=== PATIENT | male | born 1945 | race Caucasian/White ===

== ENCOUNTER 2021-01-20 17:21 | Inpatient (IN) | payer MEDICARE, OTHER ==
[2021-01-20] MEDS ORDERED: Metoclopramide 10 MG/2 ML SDV IVPUSH ONE (18:59)
--- NOTE | 2021-01-20 20:15 | EDM.PDOC ---
ED HPI GENERAL MEDICAL PROBLEM - General Chief Complaint: Genitourinary Problem Stated Complaint: THROWING UP/FEELING WEAK Time Seen by Provider: 01/20/21 18:11 Source of Information: Reports: Patient History Limitations: Reports: No Limitations - History of Present Illness INITIAL COMMENTS - FREE TEXT/NARRATIVE: 75-year-old male presents the emergency department this evening with complaints of worsening urinary symptoms, and nausea and vomiting. Patient states he has a history of UTIs and developed symptoms yesterday. He states he has frequency, urgency, and burning with urination. He also reports flank pain bilaterally.He states that he was seen at the walk-in clinic this morning and was told he has a urinary tract infection. He was started on Cipro at that time. Patient states he has taken 2 doses of Cipro however has developed nausea and vomiting and flank pain. States he had chills last evening. Denies any abdominal pain. - Related Data Allergies Allergy/AdvReac Type Severity Reaction Status Date / Time No Known Allergies Allergy Verified 01/20/21 17:34 Past Medical History Gastrointestinal History: Reports: GERD Genitourinary History: Reports: UTI, Recurrent - Infectious Disease History Infectious Disease History: Reports: Chicken Pox - Past Surgical History Other Musculoskeletal Surgeries/Procedures:: back surgery 1984 Social & Family History - Tobacco Use Tobacco Use Status *Q: Former Tobacco User Used Tobacco, but Quit: Yes Month/Year Tobacco Last Used: 09/2000 - Caffeine Use Caffeine Use: Reports: Coffee - Recreational Drug Use Recreational Drug Use: No ED ROS GENERAL - Review of Systems Review Of Systems: Comprehensive ROS is negative, except as noted in HPI. ED EXAM, RENAL/ - Physical Exam Exam: See Below Exam Limited By: No Limitations General Appearance: Alert, WD/WN, No Apparent Distress Ears: Normal External Exam, Hearing Grossly Normal Nose: Normal Inspection Throat/Mouth: Normal Inspection, Normal Lips, Normal Voice, No Airway Compromise Head: Atraumatic Neck: Normal Inspection, Supple, Non-Tender, Full Range of Motion Respiratory/Chest: No Respiratory Distress, Lungs Clear, Normal Breath Sounds, No Accessory Muscle Use, Chest Non-Tender Cardiovascular: Normal Peripheral Pulses, Regular Rate, Rhythm, No Edema, No Murmur GI/Abdominal: Normal Bowel Sounds, Soft, Non-Tender, No Distention (Male) Exam: Deferred Rectal (Males) Exam: Deferred Back Exam: Normal Inspection, Full Range of Motion Extremities: Normal Inspection, Normal Range of Motion, Non-Tender, No Pedal Edema, Normal Capillary Refill Neurological: Alert, Oriented, Normal Cognition Psychiatric: Normal Affect, Normal Mood Skin Exam: Warm, Dry, Intact, Normal Color, No Rash Lymphatic: No Adenopathy Course - Vital Signs Text/Narrative:: Patient presents with UTI who was seen at [facility] this morning and diagnosed and started on Cipro. He states that he has taken 2 doses of Cipro today however has developed nausea and vomiting. He states he probably vomited his second dose of Cipro today. I have ordered labs, UA, and Reglan 5 mg for this patient as he continues to complain of nausea. Last Recorded V/S: Last Vital Signs Temp 97.4 F 01/20/21 17:29 Pulse 64 01/20/21 17:29 Resp 12 01/20/21 17:29 BP 157/75 H 01/20/21 17:29 Pulse Ox 96 01/20/21 17:29 - Orders/Labs/Meds Orders: Active Orders 24 hr Category Date Time Status Admission Status [Patient Status] [ADT] Routine ADT 01/20/21 20:43 Active Patient Status [ADT] Routine ADT 01/20/21 20:34 Active EKG Documentation Completion [RC] ROUTINE Care 01/20/21 20:42 Active Intake and Output [RC] QSHIFT Care 01/20/21 20:43 Active Oxygen Therapy [RC] PRN Care 01/20/21 20:42 Active RT Aerosol Therapy [RC] ASDIRECTED Care 01/20/21 20:46 Active Up to Chair [RC] ASDIRECTED Care 01/20/21 20:42 Active VTE/DVT Education [RC] PER UNIT ROUTINE Care 01/20/21 20:42 Active Vital Signs [RC] Q4H Care 01/20/21 20:42 Active OT Evaluation and Treatment [CONS] Routine Cons 01/20/21 20:42 Active PT Evaluation and Treatment [CONS] Routine Cons 01/20/21 20:42 Active Regular Diet [DIET] Diet 01/20/21 Dinner Active CBC WITH AUTO DIFF [HEME] DAILY Lab 01/21/21 05:00 Ordered CBC WITH AUTO DIFF [HEME] DAILY Lab 01/22/21 05:00 Ordered CBC WITH AUTO DIFF [HEME] DAILY Lab 01/23/21 05:00 Ordered CBC WITH AUTO DIFF [HEME] DAILY Lab 01/24/21 05:00 Ordered CBC WITH AUTO DIFF [HEME] DAILY Lab 01/25/21 05:00 Ordered COMPREHENSIVE METABOLIC PN,CMP [CHEM] DAILY Lab 01/21/21 05:00 Ordered COMPREHENSIVE METABOLIC PN,CMP [CHEM] DAILY Lab 01/22/21 05:00 Ordered COMPREHENSIVE METABOLIC PN,CMP [CHEM] DAILY Lab 01/23/21 05:00 Ordered COMPREHENSIVE METABOLIC PN,CMP [CHEM] DAILY Lab 01/24/21 05:00 Ordered COMPREHENSIVE METABOLIC PN,CMP [CHEM] DAILY Lab 01/25/21 05:00 Ordered CORONAVIRUS COVID-19 AIRAM [MOLEC] Stat Lab 01/20/21 20:29 Received CULTURE BLOOD [BC] Stat Lab 01/20/21 19:59 Received CULTURE BLOOD [BC] Stat Lab 01/20/21 20:06 Received CULTURE URINE [RM] Stat Lab 01/20/21 20:42 Ordered MAGNESIUM [CHEM] Routine Lab 01/20/21 17:30 Received TROPONIN I [CHEM] Routine Lab 01/20/21 17:30 Received Acetaminophen [TylenoL] Med 01/20/21 20:42 Active 650 mg PO Q6H PRN Albuterol/Ipratropium [DuoNeb 3.0-0.5 MG/3 ML] Med 01/20/21 20:42 Active 3 ml NEB Q4H PRN Enoxaparin [Lovenox] Med 01/20/21 20:45 Active 40 mg SUBCUT DAILY Morphine Med 01/20/21 20:42 Active 2 mg IVPUSH Q4H PRN Promethazine [Phenergan] 12.5 mg Med 01/20/21 20:42 Active Sodium Chloride 0.9% [Normal Saline] 50 ml IV Q6H Sodium Chloride 0.9% [Normal Saline] 1,000 ml Med 01/20/21 20:45 Active IV ASDIRECTED cefTRIAXone [Rocephin] 1 gm Med 01/21/21 20:00 Active Sodium Chloride 0.9% [Normal Saline] 100 ml IV Q24H hydrALAZINE [Apresoline] Med 01/20/21 20:50 Active 10 mg IVPUSH Q4H PRN traMADol [Ultram] Med 01/20/21 20:48 Active 50 mg PO Q6H PRN Blood Culture x2 Reflex Set [OM.PC] Stat Oth 01/20/21 19:31 Ordered Medication Orders Acetaminophen (Acetaminophen 325 Mg Tab) 650 mg PO Q6H PRN PRN Reason: Pain (Mild 1-3)/fever Albuterol/Ipratropium (Albuterol/Ipratropium 3.0-0.5 Mg/3 Ml Neb Soln) 3 ml NEB Q4H PRN PRN Reason: Shortness Of Breath/wheezing Enoxaparin Sodium (Enoxaparin 40 Mg/0.4 Ml Syringe) 40 mg SUBCUT DAILY PATRICIO Hydralazine HCl (Hydralazine 20 Mg/Ml Sdv) 10 mg IVPUSH Q4H PRN PRN Reason: Hypertension Sodium Chloride (Normal Saline) 1,000 mls @ 70 mls/hr IV ASDIRECTED PATRICIO Promethazine HCl 12.5 mg/ (Sodium Chloride) 50.5 mls @ 100 mls/hr IV Q6H PRN PRN Reason: Nausea/Vomiting Ceftriaxone Sodium 1 gm/ (Sodium Chloride) 100 mls @ 200 mls/hr IV Q24H PATRICIO Morphine Sulfate (Morphine 2 Mg/Ml Syringe) 2 mg IVPUSH Q4H PRN PRN Reason: Pain (severe 7-10) Stop: 01/21/21 20:45 Tramadol HCl (Tramadol 50 Mg Tab) 50 mg PO Q6H PRN PRN Reason: Pain (moderate 4-6) Labs: Laboratory Tests 01/20/21 01/20/21 01/20/21 Range/Units 17:30 17:30 19:59 WBC 17.02 H (4.23-9.07) K/mm3 RBC 5.02 (4.63-6.08) M/mm3 Hgb 15.2 (13.7-17.5) gm/dl Hct 45.4 (40.1-51.0) % MCV 90.4 (79.0-92.2) fl MCH 30.3 (25.7-32.2) pg MCHC 33.5 (32.2-35.5) g/dl RDW Std Deviation 43.6 (35.1-43.9) fL Plt Count 165 (163-337) K/mm3 MPV 10.9 (9.4-12.3) fl Neut % (Auto) 87.3 H (34.0-67.9) % Lymph % (Auto) 5.8 L (21.8-53.1) % [place] % (Auto) 6.6 (5.3-12.2) % Eos % (Auto) 0 L (0.8-7.0) Baso % (Auto) 0.1 (0.1-1.2) % Neut # (Auto) 14.86 H (1.78-5.38) K/mm3 Lymph # (Auto) 0.98 L (1.32-3.57) K/mm3 [place] # (Auto) 1.13 H (0.30-0.82) K/mm3 Eos # (Auto) 0.00 L (0.04-0.54) K/mm3 Baso # (Auto) 0.01 (0.01-0.08) K/mm3 Manual Slide Review Abnormal smear Sodium 137 (136-145) mEq/L Potassium 4.2 (3.5-5.1) mEq/L Chloride 101 (98-107) mEq/L Carbon Dioxide 25 (21-32) mEq/L Anion Gap 15.2 H (5-15) BUN 16 (7-18) mg/dL Creatinine 1.2 (0.7-1.3) mg/dL Est Cr Clr Drug Dosing 54.01 mL/min Estimated GFR (MDRD) 59 (>60) mL/min BUN/Creatinine Ratio 13.3 L (14-18) Glucose 148 H (70-99) mg/dL Lactic Acid 1.6 (0.4-2.0) mmol/L Calcium 8.9 (8.5-10.1) mg/dL Total Bilirubin 1.9 H (0.2-1.0) mg/dL AST 15 (15-37) U/L ALT 19 (16-63) U/L Alkaline Phosphatase 85 (46-116) U/L C-Reactive Protein 12.8 H* (<1.0) mg/dL Total Protein 7.3 (6.4-8.2) g/dl Albumin 3.6 (3.4-5.0) g/dl Globulin 3.7 gm/dL Albumin/Globulin Ratio 1.0 (1-2) Urine Color (Yellow) Urine Appearance (Clear) Urine pH (5.0-8.0) Ur Specific [place] (1.005-1.030) Urine Protein (Negative) Urine Glucose (UA) (Negative) Urine Ketones (Negative) Urine Occult Blood (Negative) Urine Nitrite (Negative) Urine Bilirubin (Negative) Urine Urobilinogen (0.2-1.0) Ur Leukocyte Esterase (Negative) Urine RBC (0-5) /hpf Urine WBC (0-5) /hpf Ur Squamous Epith Cells (0-5) /hpf Urine Bacteria (FEW) /hpf Urine Mucus (FEW) /hpf 01/20/21 Range/Units 20:40 WBC (4.23-9.07) K/mm3 RBC (4.63-6.08) M/mm3 Hgb (13.7-17.5) gm/dl Hct (40.1-51.0) % MCV (79.0-92.2) fl MCH (25.7-32.2) pg MCHC (32.2-35.5) g/dl RDW Std Deviation (35.1-43.9) fL Plt Count (163-337) K/mm3 MPV (9.4-12.3) fl Neut % (Auto) (34.0-67.9) % Lymph % (Auto) (21.8-53.1) % Mel[place] % (Auto) (5.3-12.2) % Eos % (Auto) (0.8-7.0) Baso % (Auto) (0.1-1.2) % Neut # (Auto) (1.78-5.38) K/mm3 Lymph # (Auto) (1.32-3.57) K/mm3 [place] # (Auto) (0.30-0.82) K/mm3 Eos # (Auto) (0.04-0.54) K/mm3 Baso # (Auto) (0.01-0.08) K/mm3 Manual Slide Review Sodium (136-145) mEq/L Potassium (3.5-5.1) mEq/L Chloride (98-107) mEq/L Carbon Dioxide (21-32) mEq/L Anion Gap (5-15) BUN (7-18) mg/dL Creatinine (0.7-1.3) mg/dL Est Cr Clr Drug Dosing mL/min Estimated GFR (MDRD) (>60) mL/min BUN/Creatinine Ratio (14-18) Glucose (70-99) mg/dL Lactic Acid (0.4-2.0) mmol/L Calcium (8.5-10.1) mg/dL Total Bilirubin (0.2-1.0) mg/dL AST (15-37) U/L ALT (16-63) U/L Alkaline Phosphatase (46-116) U/L C-Reactive Protein (<1.0) mg/dL Total Protein (6.4-8.2) g/dl Albumin (3.4-5.0) g/dl Globulin gm/dL Albumin/Globulin Ratio (1-2) Urine Color Yellow (Yellow) Urine Appearance Slt cloudy H (Clear) Urine pH 7.0 (5.0-8.0) Ur Specific [place] 1.025 (1.005-1.030) Urine Protein 2+ H (Negative) Urine Glucose (UA) Negative (Negative) Urine Ketones 3+ H (Negative) Urine Occult Blood 1+ H (Negative) Urine Nitrite Negative (Negative) Urine Bilirubin Negative (Negative) Urine Urobilinogen 0.2 (0.2-1.0) Ur Leukocyte Esterase Trace H (Negative) Urine RBC 20-30 H (0-5) /hpf Urine WBC 30-40 H (0-5) /hpf Ur Squamous Epith Cells 0-5 (0-5) /hpf Urine Bacteria Few (FEW) /hpf Urine Mucus Few (FEW) /hpf Meds: Medications Generic Name Dose Route Start Last Admin Trade Name Freq PRN Reason Stop Dose Admin Acetaminophen 650 mg 01/20/21 20:42 Acetaminophen 325 Mg Tab PO Q6H PRN Pain (Mild 1-3)/fever Albuterol/Ipratropium 3 ml 01/20/21 20:42 Albuterol/Ipratropium 3.0-0.5 Mg/3 Ml Neb Soln NEB Q4H PRN Shortness Of Breath/wheezing Enoxaparin Sodium 40 mg 01/20/21 20:45 Enoxaparin 40 Mg/0.4 Ml Syringe SUBCUT DAILY PATRICIO Hydralazine HCl 10 mg 01/20/21 20:50 Hydralazine 20 Mg/Ml Sdv IVPUSH Q4H PRN Hypertension Sodium Chloride 1,000 mls @ 70 mls/hr 01/20/21 20:45 Normal Saline IV ASDIRECTED [facility] Promethazine HCl 12.5 mg/ 50.5 mls @ 100 mls/hr 01/20/21 20:42 Sodium Chloride IV Q6H PRN Nausea/Vomiting Ceftriaxone Sodium 1 gm/ 100 mls @ 200 mls/hr 01/21/21 20:00 Sodium Chloride IV Q24H PATRICIO Morphine Sulfate 2 mg 01/20/21 20:42 Morphine 2 Mg/Ml Syringe IVPUSH 01/21/21 20:45 Q4H PRN Pain (severe 7-10) Tramadol HCl 50 mg 01/20/21 20:48 Tramadol 50 Mg Tab PO Q6H PRN Pain (moderate 4-6) Discontinued Medications Generic Name Dose Route Start Last Admin Trade Name Freq PRN Reason Stop Dose Admin Ceftriaxone Sodium 1 gm/ 100 mls @ 200 mls/hr 01/20/21 20:18 01/20/21 20:45 Sodium Chloride IV 01/20/21 20:47 200 mls/hr ONETIME ONE Administration Ceftriaxone Sodium 1 gm/ 100 mls @ 200 mls/hr 01/20/21 21:00 Sodium Chloride IV Q24H [facility] Metoclopramide HCl 5 mg 01/20/21 18:59 01/20/21 19:05 Metoclopramide 10 Mg/2 Ml Sdv IVPUSH 01/20/21 19:00 5 mg ONETIME ONE Administration - Re-Assessments/Exams Free Text/Narrative Re-Assessment/Exam: 01/20/21 20:15 Hematology reveals a WBC of 17.02, hemoglobin 15.2, hematocrit 45.4, platelet count 165, neutrophil percentage 87.3, chemistry reveals a sodium of 137, potassium 4.2, anion gap 15.2, BUN 16, creatinine 1.2, glucose 148, C-reactive protein is 12.8. I have ordered blood cultures x2 on this patient as well as lactic acid. Once labs are collected I will start the patient on IV antibiotics 01/20/21 20:42 Lactic acid is 1.6. I have ordered for the patient to receive a gram of Rocephin. I feel like this patient does need to be admitted and I have spoken with Dr. Pizarro, the hospitalist. He has agreed to admit the patient. He will be added admitted under observation status. 01/20/21 21:09 Urinalysis reveals 2+ protein, 3+ ketones, 1+ occult blood, trace leuk esterase, urine RBC 20-30, urine WBC 30-40, urine culture is pending Departure - Departure Time of Disposition: 20:42 Disposition: Refer to Observation Condition: Good Clinical Impression: Pyelonephritis - Discharge Information Sepsis Event Note (ED) - Evaluation Sepsis Screening Result: No Definite Risk - Focused Exam Vital Signs: Vital Signs Temp Pulse Resp BP Pulse Ox 01/20/21 17:29 97.4 F 64 12 157/75 H 96 - My Orders Last 24 Hours: My Active Orders 01/20/21 19:31 Blood Culture x2 Reflex Set [OM.PC] Stat 01/20/21 19:59 CULTURE BLOOD [BC] Stat 01/20/21 20:06 CULTURE BLOOD [BC] Stat 01/20/21 20:29 CORONAVIRUS COVID-19 AIRAM [MOLEC] Stat 01/20/21 20:34 Patient Status [ADT] Routine 01/20/21 20:43 Admission Status [Patient Status] [ADT] Routine - Assessment/Plan Last 24 Hours: My Active Orders 01/20/21 19:31 Blood Culture x2 Reflex Set [OM.PC] Stat 01/20/21 19:59 CULTURE BLOOD [BC] Stat 01/20/21 20:06 CULTURE BLOOD [BC] Stat 01/20/21 20:29 CORONAVIRUS COVID-19 AIRAM [MOLEC] Stat 01/20/21 20:34 Patient Status [ADT] Routine 01/20/21 20:43 Admission Status [Patient Status] [ADT] Routine
[2021-01-20] MEDS ORDERED: cefTRIAXone 1 GM in Sodium Chloride 0.9% 100 ML IV ONE (20:18)
[2021-01-20] MEDS ORDERED: Morphine 2 MG/ML SYRINGE IVPUSH PRN (20:42)
[2021-01-20] MEDS ORDERED: Promethazine 12.5 MG in Sodium Chloride 0.9% 50 ML IV PRN (20:42)
[2021-01-20] MEDS ORDERED: Albuterol/Ipratropium 3.0-0.5 MG/3 ML Neb Soln NEB PRN (20:42)
[2021-01-20] MEDS ORDERED: traMADol 50 MG Tab PO PRN (20:48)
[2021-01-20] MEDS ORDERED: hydrALAZINE 20 MG/ML SDV IVPUSH PRN (20:50)
--- NOTE | 2021-01-20 20:54 | PCM.HP.2 ---
H&P History of Present Illness - General Date of Service: 01/20/21 Admit Problem/Dx: Admission Diagnosis/Problem Admission Diagnosis/Problem Pyelonephritis Source of Information: Patient, Other (chart) - History of Present Illness Initial Comments - Free Text/Narative: Patient is a 75-year-old male with a history of UTI who presented to the ER due to urinary frequency, urgency, and burning with urination x 2 days. She went to [place] walk[facility] yesterday. Over there he was diagnosed with UTI and prescribed Cipro. But he started to have nausea, vomiting and flank pain bilateral after he took Cipro. He also has chills. Otherwise he is fine. In the ER, urinalysis compatible with UTI. Ceftriaxone was initiated in the ER. - Related Data Allergies/Adverse Reactions: Allergies Allergy/AdvReac Type Severity Reaction Status Date / Time No Known Allergies Allergy Verified 01/20/21 17:34 Home Medications: Home Meds Ciprofloxacin [Ciprofloxacin HCl] 500 mg PO BID 01/21/21 [History] Tamsulosin [Flomax] 0.4 mg PO BID 01/21/21 [History] Past Medical History Gastrointestinal History: Reports: GERD Genitourinary History: Reports: UTI, Recurrent - Infectious Disease History Infectious Disease History: Reports: Chicken Pox - Past Surgical History Other Musculoskeletal Surgeries/Procedures:: back surgery 1984 Social & Family History - Family History Family Medical History: No Pertinent Family History (Denies genetic diseases in the family) - Tobacco Use Tobacco Use Status *Q: Former Tobacco User Used Tobacco, but Quit: Yes Month/Year Tobacco Last Used: 09/2000 - Caffeine Use Caffeine Use: Reports: Coffee - Recreational Drug Use Recreational Drug Use: No H&P Review of Systems - Review of Systems: Review Of Systems: See Below General: Reports: Chills HEENT: Reports: No Symptoms Pulmonary: Reports: No Symptoms Cardiovascular: Reports: No Symptoms Gastrointestinal: Reports: No Symptoms Genitourinary: Reports: Frequency, Burning, Pain, Urgency Musculoskeletal: Reports: No Symptoms Skin: Reports: No Symptoms Psychiatric: Reports: No Symptoms Neurological: Reports: No Symptoms Hematologic/Lymphatic: Reports: No Symptoms Immunologic: Reports: No Symptoms Exam - Exam Exam: See Below - Vital Signs Vital Signs: Last Vital Signs Temp 36.3 C 01/20/21 17:29 Pulse 64 01/20/21 17:29 Resp 12 01/20/21 17:29 BP 157/75 H 01/20/21 17:29 Pulse Ox 96 01/20/21 17:29 Weight: 80.286 kg - Exam General: Alert, Oriented, Cooperative HEENT: Conjunctiva Clear, EOMI, Pupils Equal, Pupils Reactive Neck: Supple, Full Range of Motion Lungs: Clear to Auscultation, Normal Respiratory Effort Cardiovascular: Regular Rate, Regular Rhythm, Normal S1, Normal S2 GI/Abdominal Exam: Normal Bowel Sounds, Soft, Non-Tender, No Organomegaly Back Exam: CVA Tenderness (L), CVA Tenderness (R) Extremities: Normal Inspection, Normal Range of Motion, Non-Tender, No Pedal Edema Skin: Warm, Dry, Intact Neurological: Strength Equal Bilateral, Normal Speech, Normal Tone, Sensation Intact Neuro Extensive - Mental Status: Alert, Oriented x3, Normal Mood/Affect Psychiatric: Normal Affect, Normal Mood - Patient Data Lab Results Last 24 hrs: Laboratory Results - last 24 hr 01/20/21 01/20/21 01/20/21 Range/Units 17:30 17:30 19:59 WBC 17.02 H (4.23-9.07) K/mm3 RBC 5.02 (4.63-6.08) M/mm3 Hgb 15.2 (13.7-17.5) gm/dl Hct 45.4 (40.1-51.0) % MCV 90.4 (79.0-92.2) fl MCH 30.3 (25.7-32.2) pg MCHC 33.5 (32.2-35.5) g/dl RDW Std Deviation 43.6 (35.1-43.9) fL Plt Count 165 (163-337) K/mm3 MPV 10.9 (9.4-12.3) fl Neut % (Auto) 87.3 H (34.0-67.9) % Lymph % (Auto) 5.8 L (21.8-53.1) % [place] % (Auto) 6.6 (5.3-12.2) % Eos % (Auto) 0 L (0.8-7.0) Baso % (Auto) 0.1 (0.1-1.2) % Neut # (Auto) 14.86 H (1.78-5.38) K/mm3 Lymph # (Auto) 0.98 L (1.32-3.57) K/mm3 [place] # (Auto) 1.13 H (0.30-0.82) K/mm3 Eos # (Auto) 0.00 L (0.04-0.54) K/mm3 Baso # (Auto) 0.01 (0.01-0.08) K/mm3 Manual Slide Review Abnormal smear Sodium 137 (136-145) mEq/L Potassium 4.2 (3.5-5.1) mEq/L Chloride 101 (98-107) mEq/L Carbon Dioxide 25 (21-32) mEq/L Anion Gap 15.2 H (5-15) BUN 16 (7-18) mg/dL Creatinine 1.2 (0.7-1.3) mg/dL Est Cr Clr Drug Dosing 54.01 mL/min Estimated GFR (MDRD) 59 (>60) mL/min BUN/Creatinine Ratio 13.3 L (14-18) Glucose 148 H (70-99) mg/dL Lactic Acid 1.6 (0.4-2.0) mmol/L Calcium 8.9 (8.5-10.1) mg/dL Total Bilirubin 1.9 H (0.2-1.0) mg/dL AST 15 (15-37) U/L ALT 19 (16-63) U/L Alkaline Phosphatase 85 (46-116) U/L C-Reactive Protein 12.8 H* (<1.0) mg/dL Total Protein 7.3 (6.4-8.2) g/dl Albumin 3.6 (3.4-5.0) g/dl Globulin 3.7 gm/dL Albumin/Globulin Ratio 1.0 (1-2) Result Diagrams: 01/21/21 05:13 01/21/21 05:13 Sepsis Event Note - Evaluation Sepsis Screening Result: No Definite Risk - Focused Exam Vital Signs: Vital Signs Temp Pulse Resp BP Pulse Ox 01/20/21 17:29 36.3 C 64 12 157/75 H 96 Problem List Initiated/Reviewed/Updated: Yes Orders Last 24hrs: Active Orders 24 hr Category Date Time Status Admission Status [Patient Status] [ADT] Routine ADT 01/20/21 20:43 Active Patient Status [ADT] Routine ADT 01/20/21 20:34 Active EKG Documentation Completion [RC] ROUTINE Care 01/20/21 20:42 Ordered Intake and Output [RC] QSHIFT Care 01/20/21 20:43 Ordered Oxygen Therapy [RC] PRN Care 01/20/21 20:42 Ordered RT Aerosol Therapy [RC] ASDIRECTED Care 01/20/21 20:46 Ordered Up to Chair [RC] ASDIRECTED Care 01/20/21 20:42 Ordered VTE/DVT Education [RC] PER UNIT ROUTINE Care 01/20/21 20:42 Ordered Vital Signs [RC] Q4H Care 01/20/21 20:42 Ordered OT Evaluation and Treatment [CONS] Routine Cons 01/20/21 20:42 Ordered PT Evaluation and Treatment [CONS] Routine Cons 01/20/21 20:42 Ordered Regular Diet [DIET] Diet 01/20/21 Dinner Ordered CBC WITH AUTO DIFF [HEME] DAILY Lab 01/21/21 05:00 Ordered CBC WITH AUTO DIFF [HEME] DAILY Lab 01/22/21 05:00 Ordered CBC WITH AUTO DIFF [HEME] DAILY Lab 01/23/21 05:00 Ordered CBC WITH AUTO DIFF [HEME] DAILY Lab 01/24/21 05:00 Ordered CBC WITH AUTO DIFF [HEME] DAILY Lab 01/25/21 05:00 Ordered COMPREHENSIVE METABOLIC PN,CMP [CHEM] DAILY Lab 01/21/21 05:00 Ordered COMPREHENSIVE METABOLIC PN,CMP [CHEM] DAILY Lab 01/22/21 05:00 Ordered COMPREHENSIVE METABOLIC PN,CMP [CHEM] DAILY Lab 01/23/21 05:00 Ordered COMPREHENSIVE METABOLIC PN,CMP [CHEM] DAILY Lab 01/24/21 05:00 Ordered COMPREHENSIVE METABOLIC PN,CMP [CHEM] DAILY Lab 01/25/21 05:00 Ordered CORONAVIRUS COVID-19 AIRAM [MOLEC] Stat Lab 01/20/21 20:29 Received CULTURE BLOOD [BC] Stat Lab 01/20/21 19:59 Received CULTURE BLOOD [BC] Stat Lab 01/20/21 20:06 Received CULTURE URINE [RM] Stat Lab 01/20/21 20:42 Ordered MAGNESIUM [CHEM] Routine Lab 01/20/21 20:42 Ordered TROPONIN I [CHEM] Routine Lab 01/20/21 20:42 Ordered UA RFX CONRADO AND CULT IF INDIC [URIN] Stat Lab 01/20/21 18:21 Ordered Acetaminophen [TylenoL] Med 01/20/21 20:42 Ordered 650 mg PO Q6H PRN Albuterol/Ipratropium [DuoNeb 3.0-0.5 MG/3 ML] Med 01/20/21 20:42 Ordered 3 ml NEB Q4H PRN Enoxaparin [Lovenox] Med 01/20/21 20:45 Ordered 40 mg SUBCUT DAILY Morphine Med 01/20/21 20:42 Ordered 2 mg IVPUSH Q4H PRN Promethazine [Phenergan] 12.5 mg Med 01/20/21 20:42 Ordered Sodium Chloride 0.9% [Normal Saline] 50 ml IV Q6H Sodium Chloride 0.9% [Normal Saline] 1,000 ml Med 01/20/21 20:45 Ordered IV ASDIRECTED cefTRIAXone [Rocephin] 1 gm Med 01/21/21 09:00 Ordered Sodium Chloride 0.9% [Normal Saline] 100 ml IV Q24H hydrALAZINE [Apresoline] Med 01/20/21 20:50 Ordered 10 mg IVPUSH Q4H PRN traMADol [Ultram] Med 01/20/21 20:48 Ordered 50 mg PO Q6H PRN Blood Culture x2 Reflex Set [OM.PC] Stat Oth 01/20/21 19:31 Ordered Medication Orders Acetaminophen (Acetaminophen 325 Mg Tab) 650 mg PO Q6H PRN PRN Reason: Pain (Mild 1-3)/fever Albuterol/Ipratropium (Albuterol/Ipratropium 3.0-0.5 Mg/3 Ml Neb Soln) 3 ml NEB Q4H PRN PRN Reason: Shortness Of Breath/wheezing Enoxaparin Sodium (Enoxaparin 40 Mg/0.4 Ml Syringe) 40 mg SUBCUT DAILY PATRICIO Hydralazine HCl (Hydralazine 20 Mg/Ml Sdv) 10 mg IVPUSH Q4H PRN PRN Reason: Hypertension Sodium Chloride (Normal Saline) 1,000 mls @ 70 mls/hr IV ASDIRECTED PATRICIO Promethazine HCl 12.5 mg/ (Sodium Chloride) 50.5 mls @ 100 mls/hr IV Q6H PRN PRN Reason: Nausea/Vomiting Ceftriaxone Sodium 1 gm/ (Sodium Chloride) 100 mls @ 200 mls/hr IV Q24H PATRICIO Morphine Sulfate (Morphine 2 Mg/Ml Syringe) 2 mg IVPUSH Q4H PRN PRN Reason: Pain (severe 7-10) Stop: 01/21/21 20:45 Tramadol HCl (Tramadol 50 Mg Tab) 50 mg PO Q6H PRN PRN Reason: Pain (moderate 4-6) Assessment/Plan Comment:: Patient is a 75-year-old male with a history of UTI who presented to the ER due to urinary frequency, urgency, and burning with urination x 2 days. Assessment: UTI/Pyelonephritis -UA compatible with UTI -CVA tenderness b/l -creatinine 1.2 LA 1.6 -CRP 12.8 -With a diagnosis of UTI at the [place] [facility], was treated with Cipro -WBC 17.02, neutrophils 82.7% HTN -Not on home blood pressure medication -Hydralazine as needed Leukocytosis -Due to UTI/pyelonephritis Acute gastritis -Nausea and vomiting BPH -On home medication Flomax Plan: 1. Will be observed on medical floor 2. Ceftriaxone 1 g IV daily Repeat renal function daily CT abdomen if not improved 3. Hydralazine as needed for his hypertension 4. Repeat CBC and CMP daily 5. Gentle IV fluid to keep him hydrated 6. Continue home Flomax 7. DVT prophylaxis: Lovenox 8. CODE STATUS: CPR only. RN and I met the patient in his room. I explained CPR and intubation to him at length. He agreed with CPR but declined intubation. - Mortality Measure Prognosis:: Good
[2021-01-20] MEDS ORDERED: cefTRIAXone 1 GM in Sodium Chloride 0.9% 100 ML IV SCH (21:00)
[2021-01-20] MEDS: Enoxaparin 40 MG/0.4 ML Syringe SUBCUT SCH (22:27)
[2021-01-20] MEDS: Sodium Chloride 0.9% 1,000 ML IV SCH (23:12)
[2021-01-21] MEDS ORDERED: Magnesium Sulfate/Water 2 GM/50 ML BAG IV ONE (08:45)
[2021-01-21] MEDS: Enoxaparin 40 MG/0.4 ML Syringe SUBCUT SCH (10:00)
[2021-01-21] MEDS: Sodium Chloride 0.9% 1,000 ML IV SCH (13:50)
[2021-01-21] MEDS: Tamsulosin 0.4 MG Cap.ER PO SCH ×2 (13:51→20:52)
--- NOTE | 2021-01-21 14:21 | PCM.PN ---
- General Info Date of Service: 01/21/21 Admission Dx/Problem (Free Text): Admission Diagnosis/Problem Admission Diagnosis/Problem Pyelonephritis Subjective Update: Patient is a 75-year-old male with a history of UTI who presented to the ER due to urinary frequency, urgency, and burning with urination x 2 days. He is feeling better. No longer has a nausea, vomiting, fever or chills. Afebrile Heart rate is around 59-63 Blood pressure is acceptable He is on room air WBC 16.41, platelets 148 Creatinine 1.0 Magnesium 1.7 - Review of Systems Systems Review Comment:: General: Reports: Chills HEENT: Reports: No Symptoms Pulmonary: Reports: No Symptoms Cardiovascular: Reports: No Symptoms Gastrointestinal: Reports: No Symptoms Genitourinary: Reports: Frequency, Burning, Pain, Urgency Musculoskeletal: Reports: No Symptoms Skin: Reports: No Symptoms Psychiatric: Reports: No Symptoms Neurological: Reports: No Symptoms Hematologic/Lymphatic: Reports: No Symptoms Immunologic: Reports: No Symptoms - Patient Data Vitals - Most Recent: Last Vital Signs Temp 36.6 C 01/21/21 12:57 Pulse 61 01/21/21 12:57 Resp 16 01/21/21 07:38 BP 116/65 01/21/21 12:57 Pulse Ox 99 01/21/21 12:57 Weight - Most Recent: 77.111 kg I&O - Last 24 Hours: Intake & Output 01/20/21 01/21/21 01/21/21 22:59 06:59 14:59 Intake Total 515 180 Output Total 350 Balance 165 180 Lab Results Last 24 Hours: Laboratory Results - last 24 hr 01/20/21 01/20/21 01/20/21 Range/Units 17:30 17:30 17:30 WBC 17.02 H (4.23-9.07) K/mm3 RBC 5.02 (4.63-6.08) M/mm3 Hgb 15.2 (13.7-17.5) gm/dl Hct 45.4 (40.1-51.0) % MCV 90.4 (79.0-92.2) fl MCH 30.3 (25.7-32.2) pg MCHC 33.5 (32.2-35.5) g/dl RDW Std Deviation 43.6 (35.1-43.9) fL Plt Count 165 (163-337) K/mm3 MPV 10.9 (9.4-12.3) fl Neut % (Auto) 87.3 H (34.0-67.9) % Lymph % (Auto) 5.8 L (21.8-53.1) % [place] % (Auto) 6.6 (5.3-12.2) % Eos % (Auto) 0 L (0.8-7.0) Baso % (Auto) 0.1 (0.1-1.2) % Neut # (Auto) 14.86 H (1.78-5.38) K/mm3 Lymph # (Auto) 0.98 L (1.32-3.57) K/mm3 [place] # (Auto) 1.13 H (0.30-0.82) K/mm3 Eos # (Auto) 0.00 L (0.04-0.54) K/mm3 Baso # (Auto) 0.01 (0.01-0.08) K/mm3 Manual Slide Review Abnormal smear Sodium 137 (136-145) mEq/L Potassium 4.2 (3.5-5.1) mEq/L Chloride 101 (98-107) mEq/L Carbon Dioxide 25 (21-32) mEq/L Anion Gap 15.2 H (5-15) BUN 16 (7-18) mg/dL Creatinine 1.2 (0.7-1.3) mg/dL Est Cr Clr Drug Dosing 54.01 mL/min Estimated GFR (MDRD) 59 (>60) mL/min BUN/Creatinine Ratio 13.3 L (14-18) Glucose 148 H (70-99) mg/dL Lactic Acid (0.4-2.0) mmol/L Calcium 8.9 (8.5-10.1) mg/dL Magnesium 1.7 L (1.8-2.4) mg/dL Total Bilirubin 1.9 H (0.2-1.0) mg/dL AST 15 (15-37) U/L ALT 19 (16-63) U/L Alkaline Phosphatase 85 (46-116) U/L Troponin I < 0.017 (0.00-0.056) ng/mL C-Reactive Protein 12.8 H* (<1.0) mg/dL Total Protein 7.3 (6.4-8.2) g/dl Albumin 3.6 (3.4-5.0) g/dl Globulin 3.7 gm/dL Albumin/Globulin Ratio 1.0 (1-2) Urine Color (Yellow) Urine Appearance (Clear) Urine pH (5.0-8.0) Ur Specific [place] (1.005-1.030) Urine Protein (Negative) Urine Glucose (UA) (Negative) Urine Ketones (Negative) Urine Occult Blood (Negative) Urine Nitrite (Negative) Urine Bilirubin (Negative) Urine Urobilinogen (0.2-1.0) Ur Leukocyte Esterase (Negative) Urine RBC (0-5) /hpf Urine WBC (0-5) /hpf Ur Squamous Epith Cells (0-5) /hpf Urine Bacteria (FEW) /hpf Urine Mucus (FEW) /hpf SARS-CoV-2 RNA (AIRAM) (NEGATIVE) 01/20/21 01/20/21 01/20/21 Range/Units 19:59 20:29 20:40 WBC (4.23-9.07) K/mm3 RBC (4.63-6.08) M/mm3 Hgb (13.7-17.5) gm/dl Hct (40.1-51.0) % MCV (79.0-92.2) fl MCH (25.7-32.2) pg MCHC (32.2-35.5) g/dl RDW Std Deviation (35.1-43.9) fL Plt Count (163-337) K/mm3 MPV (9.4-12.3) fl Neut % (Auto) (34.0-67.9) % Lymph % (Auto) (21.8-53.1) % [place] % (Auto) (5.3-12.2) % Eos % (Auto) (0.8-7.0) Baso % (Auto) (0.1-1.2) % Neut # (Auto) (1.78-5.38) K/mm3 Lymph # (Auto) (1.32-3.57) K/mm3 [place] # (Auto) (0.30-0.82) K/mm3 Eos # (Auto) (0.04-0.54) K/mm3 Baso # (Auto) (0.01-0.08) K/mm3 Manual Slide Review Sodium (136-145) mEq/L Potassium (3.5-5.1) mEq/L Chloride (98-107) mEq/L Carbon Dioxide (21-32) mEq/L Anion Gap (5-15) BUN (7-18) mg/dL Creatinine (0.7-1.3) mg/dL Est Cr Clr Drug Dosing mL/min Estimated GFR (MDRD) (>60) mL/min BUN/Creatinine Ratio (14-18) Glucose (70-99) mg/dL Lactic Acid 1.6 (0.4-2.0) mmol/L Calcium (8.5-10.1) mg/dL Magnesium (1.8-2.4) mg/dL Total Bilirubin (0.2-1.0) mg/dL AST (15-37) U/L ALT (16-63) U/L Alkaline Phosphatase (46-116) U/L Troponin I (0.00-0.056) ng/mL C-Reactive Protein (<1.0) mg/dL Total Protein (6.4-8.2) g/dl Albumin (3.4-5.0) g/dl Globulin gm/dL Albumin/Globulin Ratio (1-2) Urine Color Yellow (Yellow) Urine Appearance Slt cloudy H (Clear) Urine pH 7.0 (5.0-8.0) Ur Specific [place] 1.025 (1.005-1.030) Urine Protein 2+ H (Negative) Urine Glucose (UA) Negative (Negative) Urine Ketones 3+ H (Negative) Urine Occult Blood 1+ H (Negative) Urine Nitrite Negative (Negative) Urine Bilirubin Negative (Negative) Urine Urobilinogen 0.2 (0.2-1.0) Ur Leukocyte Esterase Trace H (Negative) Urine RBC 20-30 H (0-5) /hpf Urine WBC 30-40 H (0-5) /hpf Ur Squamous Epith Cells 0-5 (0-5) /hpf Urine Bacteria Few (FEW) /hpf Urine Mucus Few (FEW) /hpf SARS-CoV-2 RNA (AIRAM) Negative (NEGATIVE) 01/21/21 01/21/21 Range/Units 05:13 05:13 WBC 16.41 H (4.23-9.07) K/mm3 RBC 4.57 L (4.63-6.08) M/mm3 Hgb 13.8 (13.7-17.5) gm/dl Hct 41.9 (40.1-51.0) % MCV 91.7 (79.0-92.2) fl MCH 30.2 (25.7-32.2) pg MCHC 32.9 (32.2-35.5) g/dl RDW Std Deviation 44.0 H (35.1-43.9) fL Plt Count 148 L (163-337) K/mm3 MPV 10.7 (9.4-12.3) fl Neut % (Auto) 82.7 H (34.0-67.9) % Lymph % (Auto) 8.4 L (21.8-53.1) % [place] % (Auto) 8.3 (5.3-12.2) % Eos % (Auto) 0.1 L (0.8-7.0) Baso % (Auto) 0.1 (0.1-1.2) % Neut # (Auto) 13.57 H (1.78-5.38) K/mm3 Lymph # (Auto) 1.38 (1.32-3.57) K/mm3 [place] # (Auto) 1.37 H (0.30-0.82) K/mm3 Eos # (Auto) 0.01 L (0.04-0.54) K/mm3 Baso # (Auto) 0.01 (0.01-0.08) K/mm3 Manual Slide Review Abnormal smear Sodium 139 (136-145) mEq/L Potassium 3.9 (3.5-5.1) mEq/L Chloride 103 (98-107) mEq/L Carbon Dioxide 22 (21-32) mEq/L Anion Gap 17.9 H (5-15) BUN 18 (7-18) mg/dL Creatinine 1.0 (0.7-1.3) mg/dL Est Cr Clr Drug Dosing 64.81 mL/min Estimated GFR (MDRD) > 60 (>60) mL/min BUN/Creatinine Ratio 18.0 (14-18) Glucose 127 H (70-99) mg/dL Lactic Acid (0.4-2.0) mmol/L Calcium 8.2 L (8.5-10.1) mg/dL Magnesium (1.8-2.4) mg/dL Total Bilirubin 1.3 H (0.2-1.0) mg/dL AST 10 L (15-37) U/L ALT 18 (16-63) U/L Alkaline Phosphatase 71 (46-116) U/L Troponin I (0.00-0.056) ng/mL C-Reactive Protein (<1.0) mg/dL Total Protein 6.4 (6.4-8.2) g/dl Albumin 3.0 L (3.4-5.0) g/dl Globulin 3.4 gm/dL Albumin/Globulin Ratio 0.9 L (1-2) Urine Color (Yellow) Urine Appearance (Clear) Urine pH (5.0-8.0) Ur Specific [place] (1.005-1.030) Urine Protein (Negative) Urine Glucose (UA) (Negative) Urine Ketones (Negative) Urine Occult Blood (Negative) Urine Nitrite (Negative) Urine Bilirubin (Negative) Urine Urobilinogen (0.2-1.0) Ur Leukocyte Esterase (Negative) Urine RBC (0-5) /hpf Urine WBC (0-5) /hpf Ur Squamous Epith Cells (0-5) /hpf Urine Bacteria (FEW) /hpf Urine Mucus (FEW) /hpf SARS-CoV-2 RNA (AIRAM) (NEGATIVE) [place] Results Last 24 Hours: Microbiology 01/20/21 20:40 Urine Culture - Preliminary Urine, Clean Catch NO GROWTH AFTER 1 DAY Med Orders - Current: Current Medications Acetaminophen (Acetaminophen 325 Mg Tab) 650 mg PO Q6H PRN PRN Reason: Pain (Mild 1-3)/fever Albuterol/Ipratropium (Albuterol/Ipratropium 3.0-0.5 Mg/3 Ml Neb Soln) 3 ml NEB Q4H PRN PRN Reason: Shortness Of Breath/wheezing Enoxaparin Sodium (Enoxaparin 40 Mg/0.4 Ml Syringe) 40 mg SUBCUT DAILY [facility] Last Admin: 01/21/21 10:00 Dose: 40 mg Documented by: Hydralazine HCl (Hydralazine 20 Mg/Ml Sdv) 10 mg IVPUSH Q4H PRN PRN Reason: Hypertension Sodium Chloride (Normal Saline) 1,000 mls @ 70 mls/hr IV ASDIRECTED [facility] Last Admin: 01/21/21 13:50 Dose: 70 mls/hr Documented by: Promethazine HCl 12.5 mg/ (Sodium Chloride) 50.5 mls @ 100 mls/hr IV Q6H PRN PRN Reason: Nausea/Vomiting Ceftriaxone Sodium 1 gm/ (Sodium Chloride) 100 mls @ 200 mls/hr IV Q24H [facility] Morphine Sulfate (Morphine 2 Mg/Ml Syringe) 2 mg IVPUSH Q4H PRN PRN Reason: Pain (severe 7-10) Stop: 01/21/21 20:45 Tamsulosin HCl (Tamsulosin 0.4 Mg Cap.Er) 0.4 mg PO BID [facility] Last Admin: 01/21/21 13:51 Dose: 0.4 mg Documented by: Tramadol HCl (Tramadol 50 Mg Tab) 50 mg PO Q6H PRN PRN Reason: Pain (moderate 4-6) Discontinued Medications Ceftriaxone Sodium 1 gm/ (Sodium Chloride) 100 mls @ 200 mls/hr IV ONETIME ONE Stop: 01/20/21 20:47 Last Admin: 01/20/21 20:45 Dose: 200 mls/hr Documented by: Ceftriaxone Sodium 1 gm/ (Sodium Chloride) 100 mls @ 200 mls/hr IV Q24H [facility] Magnesium Sulfate (Magnesium Sulfate In Water 2 Gm/50 Ml) 2 gm in 50 mls @ 25 mls/hr IV ONETIME ONE Stop: 01/21/21 10:44 Last Admin: 01/21/21 08:46 Dose: 25 mls/hr Documented by: Metoclopramide HCl (Metoclopramide 10 Mg/2 Ml Sdv) 5 mg IVPUSH ONETIME ONE Stop: 01/20/21 19:00 Last Admin: 01/20/21 19:05 Dose: 5 mg Documented by: - Exam Physical Findings Comments:: General: Alert, Oriented, Cooperative HEENT: Conjunctiva Clear, EOMI, Pupils Equal, Pupils Reactive Neck: Supple, Full Range of Motion Lungs: Clear to Auscultation, Normal Respiratory Effort Cardiovascular: Regular Rate, Regular Rhythm, Normal S1, Normal S2 GI/Abdominal Exam: Normal Bowel Sounds, Soft, Non-Tender, No Organomegaly Back Exam: CVA Tenderness (L) and CVA Tenderness (R) (improved) Extremities: Normal Inspection, Normal Range of Motion, Non-Tender, No Pedal Edema Skin: Warm, Dry, Intact Neurological: Strength Equal Bilateral, Normal Speech, Normal Tone, Sensation Intact Neuro Extensive - Mental Status: Alert, Oriented x3, Normal Mood/Affect Psychiatric: Normal Affect, Normal Mood - Patient Data Lab Results Last 24 hrs: Laboratory Results - last 24 hr 01/20/21 01/20/21 01/20/21 Range/Units 17:30 17:30 17:30 WBC 17.02 H (4.23-9.07) K/mm3 RBC 5.02 (4.63-6.08) M/mm3 Hgb 15.2 (13.7-17.5) gm/dl Hct 45.4 (40.1-51.0) % MCV 90.4 (79.0-92.2) fl MCH 30.3 (25.7-32.2) pg MCHC 33.5 (32.2-35.5) g/dl RDW Std Deviation 43.6 (35.1-43.9) fL Plt Count 165 (163-337) K/mm3 MPV 10.9 (9.4-12.3) fl Neut % (Auto) 87.3 H (34.0-67.9) % Lymph % (Auto) 5.8 L (21.8-53.1) % [place] % (Auto) 6.6 (5.3-12.2) % Eos % (Auto) 0 L (0.8-7.0) Baso % (Auto) 0.1 (0.1-1.2) % Neut # (Auto) 14.86 H (1.78-5.38) K/mm3 Lymph # (Auto) 0.98 L (1.32-3.57) K/mm3 [place] # (Auto) 1.13 H (0.30-0.82) K/mm3 Eos # (Auto) 0.00 L (0.04-0.54) K/mm3 Baso # (Auto) 0.01 (0.01-0.08) K/mm3 Manual Slide Review Abnormal smear Sodium 137 (136-145) mEq/L Potassium 4.2 (3.5-5.1) mEq/L Chloride 101 (98-107) mEq/L Carbon Dioxide 25 (21-32) mEq/L Anion Gap 15.2 H (5-15) BUN 16 (7-18) mg/dL Creatinine 1.2 (0.7-1.3) mg/dL Est Cr Clr Drug Dosing 54.01 mL/min Estimated GFR (MDRD) 59 (>60) mL/min BUN/Creatinine Ratio 13.3 L (14-18) Glucose 148 H (70-99) mg/dL Lactic Acid (0.4-2.0) mmol/L Calcium 8.9 (8.5-10.1) mg/dL Magnesium 1.7 L (1.8-2.4) mg/dL Total Bilirubin 1.9 H (0.2-1.0) mg/dL AST 15 (15-37) U/L ALT 19 (16-63) U/L Alkaline Phosphatase 85 (46-116) U/L Troponin I < 0.017 (0.00-0.056) ng/mL C-Reactive Protein 12.8 H* (<1.0) mg/dL Total Protein 7.3 (6.4-8.2) g/dl Albumin 3.6 (3.4-5.0) g/dl Globulin 3.7 gm/dL Albumin/Globulin Ratio 1.0 (1-2) Urine Color (Yellow) Urine Appearance (Clear) Urine pH (5.0-8.0) Ur Specific [place] (1.005-1.030) Urine Protein (Negative) Urine Glucose (UA) (Negative) Urine Ketones (Negative) Urine Occult Blood (Negative) Urine Nitrite (Negative) Urine Bilirubin (Negative) Urine Urobilinogen (0.2-1.0) Ur Leukocyte Esterase (Negative) Urine RBC (0-5) /hpf Urine WBC (0-5) /hpf Ur Squamous Epith Cells (0-5) /hpf Urine Bacteria (FEW) /hpf Urine Mucus (FEW) /hpf SARS-CoV-2 RNA (AIRAM) (NEGATIVE) 01/20/21 01/20/21 01/20/21 Range/Units 19:59 20:29 20:40 WBC (4.23-9.07) K/mm3 RBC (4.63-6.08) M/mm3 Hgb (13.7-17.5) gm/dl Hct (40.1-51.0) % MCV (79.0-92.2) fl MCH (25.7-32.2) pg MCHC (32.2-35.5) g/dl RDW Std Deviation (35.1-43.9) fL Plt Count (163-337) K/mm3 MPV (9.4-12.3) fl Neut % (Auto) (34.0-67.9) % Lymph % (Auto) (21.8-53.1) % [place] % (Auto) (5.3-12.2) % Eos % (Auto) (0.8-7.0) Baso % (Auto) (0.1-1.2) % Neut # (Auto) (1.78-5.38) K/mm3 Lymph # (Auto) (1.32-3.57) K/mm3 [place] # (Auto) (0.30-0.82) K/mm3 Eos # (Auto) (0.04-0.54) K/mm3 Baso # (Auto) (0.01-0.08) K/mm3 Manual Slide Review Sodium (136-145) mEq/L Potassium (3.5-5.1) mEq/L Chloride (98-107) mEq/L Carbon Dioxide (21-32) mEq/L Anion Gap (5-15) BUN (7-18) mg/dL Creatinine (0.7-1.3) mg/dL Est Cr Clr Drug Dosing mL/min Estimated GFR (MDRD) (>60) mL/min BUN/Creatinine Ratio (14-18) Glucose (70-99) mg/dL Lactic Acid 1.6 (0.4-2.0) mmol/L Calcium (8.5-10.1) mg/dL Magnesium (1.8-2.4) mg/dL Total Bilirubin (0.2-1.0) mg/dL AST (15-37) U/L ALT (16-63) U/L Alkaline Phosphatase (46-116) U/L Troponin I (0.00-0.056) ng/mL C-Reactive Protein (<1.0) mg/dL Total Protein (6.4-8.2) g/dl Albumin (3.4-5.0) g/dl Globulin gm/dL Albumin/Globulin Ratio (1-2) Urine Color Yellow (Yellow) Urine Appearance Slt cloudy H (Clear) Urine pH 7.0 (5.0-8.0) Ur Specific [place] 1.025 (1.005-1.030) Urine Protein 2+ H (Negative) Urine Glucose (UA) Negative (Negative) Urine Ketones 3+ H (Negative) Urine Occult Blood 1+ H (Negative) Urine Nitrite Negative (Negative) Urine Bilirubin Negative (Negative) Urine Urobilinogen 0.2 (0.2-1.0) Ur Leukocyte Esterase Trace H (Negative) Urine RBC 20-30 H (0-5) /hpf Urine WBC 30-40 H (0-5) /hpf Ur Squamous Epith Cells 0-5 (0-5) /hpf Urine Bacteria Few (FEW) /hpf Urine Mucus Few (FEW) /hpf SARS-CoV-2 RNA (AIRAM) Negative (NEGATIVE) 01/21/21 01/21/21 Range/Units 05:13 05:13 WBC 16.41 H (4.23-9.07) K/mm3 RBC 4.57 L (4.63-6.08) M/mm3 Hgb 13.8 (13.7-17.5) gm/dl Hct 41.9 (40.1-51.0) % MCV 91.7 (79.0-92.2) fl MCH 30.2 (25.7-32.2) pg MCHC 32.9 (32.2-35.5) g/dl RDW Std Deviation 44.0 H (35.1-43.9) fL Plt Count 148 L (163-337) K/mm3 MPV 10.7 (9.4-12.3) fl Neut % (Auto) 82.7 H (34.0-67.9) % Lymph % (Auto) 8.4 L (21.8-53.1) % [place] % (Auto) 8.3 (5.3-12.2) % Eos % (Auto) 0.1 L (0.8-7.0) Baso % (Auto) 0.1 (0.1-1.2) % Neut # (Auto) 13.57 H (1.78-5.38) K/mm3 Lymph # (Auto) 1.38 (1.32-3.57) K/mm3 [place] # (Auto) 1.37 H (0.30-0.82) K/mm3 Eos # (Auto) 0.01 L (0.04-0.54) K/mm3 Baso # (Auto) 0.01 (0.01-0.08) K/mm3 Manual Slide Review Abnormal smear Sodium 139 (136-145) mEq/L Potassium 3.9 (3.5-5.1) mEq/L Chloride 103 (98-107) mEq/L Carbon Dioxide 22 (21-32) mEq/L Anion Gap 17.9 H (5-15) BUN 18 (7-18) mg/dL Creatinine 1.0 (0.7-1.3) mg/dL Est Cr Clr Drug Dosing 64.81 mL/min Estimated GFR (MDRD) > 60 (>60) mL/min BUN/Creatinine Ratio 18.0 (14-18) Glucose 127 H (70-99) mg/dL Lactic Acid (0.4-2.0) mmol/L Calcium 8.2 L (8.5-10.1) mg/dL Magnesium (1.8-2.4) mg/dL Total Bilirubin 1.3 H (0.2-1.0) mg/dL AST 10 L (15-37) U/L ALT 18 (16-63) U/L Alkaline Phosphatase 71 (46-116) U/L Troponin I (0.00-0.056) ng/mL C-Reactive Protein (<1.0) mg/dL Total Protein 6.4 (6.4-8.2) g/dl Albumin 3.0 L (3.4-5.0) g/dl Globulin 3.4 gm/dL Albumin/Globulin Ratio 0.9 L (1-2) Urine Color (Yellow) Urine Appearance (Clear) Urine pH (5.0-8.0) Ur Specific [place] (1.005-1.030) Urine Protein (Negative) Urine Glucose (UA) (Negative) Urine Ketones (Negative) Urine Occult Blood (Negative) Urine Nitrite (Negative) Urine Bilirubin (Negative) Urine Urobilinogen (0.2-1.0) Ur Leukocyte Esterase (Negative) Urine RBC (0-5) /hpf Urine WBC (0-5) /hpf Ur Squamous Epith Cells (0-5) /hpf Urine Bacteria (FEW) /hpf Urine Mucus (FEW) /hpf SARS-CoV-2 RNA (AIRAM) (NEGATIVE) Result Diagrams: 01/21/21 05:13 01/21/21 05:13 [place] Results Last 24 hrs: Microbiology 01/20/21 20:40 Urine Culture - Preliminary Urine, Clean Catch NO GROWTH AFTER 1 DAY Sepsis Event Note - Evaluation Sepsis Screening Result: No Definite Risk - Focused Exam Vital Signs: Vital Signs Temp Pulse Resp BP Pulse Ox 01/21/21 12:57 36.6 C 61 116/65 99 01/21/21 07:38 36.7 C 60 16 126/69 93 L 01/21/21 05:26 36.7 C 63 18 113/68 97 - Problem List Review Problem List Initiated/Reviewed/Updated: Yes - My Orders Last 24 Hours: My Active Orders 01/20/21 Dinner Regular Diet [DIET] 01/20/21 20:40 CULTURE URINE [RM] Stat 01/20/21 20:42 EKG Documentation Completion [RC] ROUTINE Oxygen Therapy [RC] PRN Up to Chair [RC] BID VTE/DVT Education [RC] DAILY Vital Signs [RC] Q4HR OT Evaluation and Treatment [CONS] Routine PT Evaluation and Treatment [CONS] Routine Acetaminophen [TylenoL] 650 mg PO Q6H PRN Albuterol/Ipratropium [DuoNeb 3.0-0.5 MG/3 ML] 3 ml NEB Q4H PRN Morphine 2 mg IVPUSH Q4H PRN Promethazine [Phenergan] 12.5 mg Sodium Chloride 0.9% [Normal Saline] 50 ml IV Q6H 01/20/21 20:43 Intake and Output [RC] 04,16 01/20/21 20:45 Enoxaparin [Lovenox] 40 mg SUBCUT DAILY Sodium Chloride 0.9% [Normal Saline] 1,000 ml IV ASDIRECTED 01/20/21 20:46 RT Aerosol Therapy [RC] ASDIRECTED 01/20/21 20:48 traMADol [Ultram] 50 mg PO Q6H PRN 01/20/21 20:50 hydrALAZINE [Apresoline] 10 mg IVPUSH Q4H PRN 01/21/21 08:25 Admission Status [Patient Status] [ADT] Routine 01/21/21 10:08 Code Status [Resuscitation Status] Routine 01/21/21 13:45 Tamsulosin [Flomax] 0.4 mg PO BID 01/21/21 20:00 cefTRIAXone [Rocephin] 1 gm Sodium Chloride 0.9% [Normal Saline] 100 ml IV Q24H 01/22/21 05:00 CBC WITH AUTO DIFF [HEME] DAILY COMPREHENSIVE METABOLIC PN,CMP [CHEM] DAILY MAGNESIUM [CHEM] Routine 01/23/21 05:00 CBC WITH AUTO DIFF [HEME] DAILY COMPREHENSIVE METABOLIC PN,CMP [CHEM] DAILY 01/24/21 05:00 CBC WITH AUTO DIFF [HEME] DAILY COMPREHENSIVE METABOLIC PN,CMP [CHEM] DAILY 01/25/21 05:00 CBC WITH AUTO DIFF [HEME] DAILY COMPREHENSIVE METABOLIC PN,CMP [CHEM] DAILY - Plan Plan:: Patient is a 75-year-old male with a history of UTI who presented to the ER due to urinary frequency, urgency, and burning with urination x 2 days. Assessment: UTI/Pyelonephritis -UA compatible with UTI -CVA tenderness b/l -creatinine 1.2 on admission -CRP 12.8 on admission -With a diagnosis of UTI at the [place] walk-in clinic, was treated with Cipro -WBC 17.02, neutrophils 82.7% on admission -Urine culture - no growth so far HTN -Not on home blood pressure medication -Hydralazine as needed Leukocytosis -Due to UTI/pyelonephritis Acute gastritis -Nausea and vomiting BPH -On home medication Flomax Plan: 1. Will be observed on medical floor 2. Ceftriaxone 1 g IV daily, pending urine culture Repeat renal function daily CT abdomen if not improved 3. Hydralazine as needed for his hypertension 4. Repeat CBC and CMP daily 5. Gentle IV fluid to keep him hydrated 6. Continue home Flomax 7. DVT prophylaxis: Lovenox 8. CODE STATUS: CPR only. RN and I met the patient in his room. I explained CPR and intubation to him at length. He agreed with CPR but declined intubation. Deposition: Home 1 to 2 more days
[2021-01-21] MEDS: Acetaminophen 325 MG Tab PO PRN (20:52)
[2021-01-21] MEDS: cefTRIAXone 1 GM in Sodium Chloride 0.9% 100 ML IV SCH (20:52)
[2021-01-22] MEDS: Sodium Chloride 0.9% 1,000 ML IV SCH (04:13)
[2021-01-22] MEDS: Enoxaparin 40 MG/0.4 ML Syringe SUBCUT SCH (08:39)
[2021-01-22] MEDS: Tamsulosin 0.4 MG Cap.ER PO SCH ×2 (08:39→21:12)
--- NOTE | 2021-01-22 10:50 | PCM.PN ---
- General Info Date of Service: 01/22/21 Admission Dx/Problem (Free Text): Admission Diagnosis/Problem Admission Diagnosis/Problem Pyelonephritis Subjective Update: Patient is a 75-year-old male with a history of UTI who presented to the ER due to urinary frequency, urgency, and burning with urination x 2 days. He is feeling better. No longer has a nausea, vomiting, fever or chills. Afebrile Heart rate is around 59-63 Blood pressure is acceptable He is on room air WBC 16.41, platelets 148 Creatinine 1.0 Magnesium 1.7 01/22/21 afebrile vss feels much better eating and no nausea currently . feels stronger and wants to walk . still has urinary freq. but burning mostly gone. back pain persists and rt cva tenderness persists. rest of exam normal . lab better crp and repeat ua ordered. on rocephin for suspected rt pylo and complex uti. bph or neurogenic bladder issues for last year with recurrent utis x 3 . plan: cont iv ant with hep lock iv tonight . oral ant to complete [address] scan to eval renal anatomy. flomax for susp. bph with partial obstruction features. pre and post void bladder scan . home tomorrow. boh - Review of Systems General: Reports: No Symptoms, Weakness, Fatigue, Malaise, Chills HEENT: Reports: No Symptoms Pulmonary: Reports: No Symptoms Cardiovascular: Reports: No Symptoms Gastrointestinal: Reports: No Symptoms Genitourinary: Reports: No Symptoms Musculoskeletal: Reports: No Symptoms, Back Pain (rt cva tenderness to percussiomn ) Skin: Reports: No Symptoms Neurological: Reports: No Symptoms Psychiatric: Reports: No Symptoms - Patient Data Vitals - Most Recent: Last Vital Signs Temp 36.6 C 01/22/21 07:30 Pulse 53 L 01/22/21 07:30 Resp 20 01/22/21 07:30 BP 129/79 01/22/21 07:30 Pulse Ox 97 01/22/21 07:30 Weight - Most Recent: 78.245 kg I&O - Last 24 Hours: Intake & Output 01/21/21 01/22/21 01/22/21 22:59 06:59 14:59 Intake Total 1810 1606 Output Total 700 1050 320 Balance 1110 556 -320 Lab Results Last 24 Hours: Laboratory Results - last 24 hr 01/22/21 01/22/21 Range/Units 04:50 04:50 WBC 11.12 H (4.23-9.07) K/mm3 RBC 4.09 L (4.63-6.08) M/mm3 Hgb 12.5 L (13.7-17.5) gm/dl Hct 38.0 L (40.1-51.0) % MCV 92.9 H (79.0-92.2) fl MCH 30.6 (25.7-32.2) pg MCHC 32.9 (32.2-35.5) g/dl RDW Std Deviation 44.6 H (35.1-43.9) fL Plt Count 141 L (163-337) K/mm3 MPV 10.3 (9.4-12.3) fl Neut % (Auto) 78.8 H (34.0-67.9) % Lymph % (Auto) 10.9 L (21.8-53.1) % [place] % (Auto) 9.2 (5.3-12.2) % Eos % (Auto) 0.7 L (0.8-7.0) Baso % (Auto) 0.1 (0.1-1.2) % Neut # (Auto) 8.77 H (1.78-5.38) K/mm3 Lymph # (Auto) 1.21 L (1.32-3.57) K/mm3 [place] # (Auto) 1.02 H (0.30-0.82) K/mm3 Eos # (Auto) 0.08 (0.04-0.54) K/mm3 Baso # (Auto) 0.01 (0.01-0.08) K/mm3 Sodium 138 (136-145) mEq/L Potassium 4.2 (3.5-5.1) mEq/L Chloride 105 (98-107) mEq/L Carbon Dioxide 24 (21-32) mEq/L Anion Gap 13.2 (5-15) BUN 15 (7-18) mg/dL Creatinine 1.0 (0.7-1.3) mg/dL Est Cr Clr Drug Dosing 64.81 mL/min Estimated GFR (MDRD) > 60 (>60) mL/min BUN/Creatinine Ratio 15.0 (14-18) Glucose 109 H (70-99) mg/dL Calcium 7.9 L (8.5-10.1) mg/dL Magnesium 2.2 (1.8-2.4) mg/dL Total Bilirubin 0.8 (0.2-1.0) mg/dL AST 12 L (15-37) U/L ALT 17 (16-63) U/L Alkaline Phosphatase 65 (46-116) U/L Total Protein 6.0 L (6.4-8.2) g/dl Albumin 2.7 L (3.4-5.0) g/dl Globulin 3.3 gm/dL Albumin/Globulin Ratio 0.8 L (1-2) [place] Results Last 24 Hours: Microbiology 01/20/21 20:40 Urine Culture - Final Urine, Clean Catch NO GROWTH AFTER 2 DAYS 01/20/21 20:06 Aerobic Blood Culture - Preliminary Blood - Venous - Lab Draw NO GROWTH AFTER 1 DAY Anaerobic Blood Culture - Preliminary NO GROWTH AFTER 1 DAY 01/20/21 19:59 Aerobic Blood Culture - Preliminary Blood - Venous NO GROWTH AFTER 1 DAY Anaerobic Blood Culture - Preliminary NO GROWTH AFTER 1 DAY Med Orders - Current: Current Medications Acetaminophen (Acetaminophen 325 Mg Tab) 650 mg PO Q6H PRN PRN Reason: Pain (Mild 1-3)/fever Last Admin: 01/21/21 20:52 Dose: 650 mg Documented by: Albuterol/Ipratropium (Albuterol/Ipratropium 3.0-0.5 Mg/3 Ml Neb Soln) 3 ml NEB Q4H PRN PRN Reason: Shortness Of Breath/wheezing Enoxaparin Sodium (Enoxaparin 40 Mg/0.4 Ml Syringe) 40 mg SUBCUT DAILY [facility] Last Admin: 01/22/21 08:39 Dose: 40 mg Documented by: Hydralazine HCl (Hydralazine 20 Mg/Ml Sdv) 10 mg IVPUSH Q4H PRN PRN Reason: Hypertension Sodium Chloride (Normal Saline) 1,000 mls @ 70 mls/hr IV ASDIRECTED [facility] Last Admin: 01/22/21 04:13 Dose: 70 mls/hr Documented by: Promethazine HCl 12.5 mg/ (Sodium Chloride) 50.5 mls @ 100 mls/hr IV Q6H PRN PRN Reason: Nausea/Vomiting Ceftriaxone Sodium 1 gm/ (Sodium Chloride) 100 mls @ 200 mls/hr IV Q24H [facility] Last Admin: 01/21/21 20:52 Dose: 200 mls/hr Documented by: Tamsulosin HCl (Tamsulosin 0.4 Mg Cap.Er) 0.4 mg PO BID [facility] Last Admin: 01/22/21 08:39 Dose: 0.4 mg Documented by: Tramadol HCl (Tramadol 50 Mg Tab) 50 mg PO Q6H PRN PRN Reason: Pain (moderate 4-6) Discontinued Medications Ceftriaxone Sodium 1 gm/ (Sodium Chloride) 100 mls @ 200 mls/hr IV ONETIME ONE Stop: 01/20/21 20:47 Last Admin: 01/20/21 20:45 Dose: 200 mls/hr Documented by: Ceftriaxone Sodium 1 gm/ (Sodium Chloride) 100 mls @ 200 mls/hr IV Q24H [facility] Magnesium Sulfate (Magnesium Sulfate In Water 2 Gm/50 Ml) 2 gm in 50 mls @ 25 mls/hr IV ONETIME ONE Stop: 01/21/21 10:44 Last Admin: 01/21/21 08:46 Dose: 25 mls/hr Documented by: Metoclopramide HCl (Metoclopramide 10 Mg/2 Ml Sdv) 5 mg IVPUSH ONETIME ONE Stop: 01/20/21 19:00 Last Admin: 01/20/21 19:05 Dose: 5 mg Documented by: Morphine Sulfate (Morphine 2 Mg/Ml Syringe) 2 mg IVPUSH Q4H PRN PRN Reason: Pain (severe 7-10) Stop: 01/21/21 20:45 - Exam General: Alert, Oriented HEENT: Pupils Equal, Pupils Reactive, EOMI, Mucous Membr. Moist/Ona Neck: Supple Lungs: Clear to Auscultation, Normal Respiratory Effort Cardiovascular: Regular Rate, Regular Rhythm GI/Abdominal Exam: Normal Bowel Sounds, Soft, Non-Tender, No Organomegaly, No Distention, No Abnormal Bruit, No Mass, Pelvis Stable, Rebound, Other (Male) Exam: No Hernia, Normal Inspection, Normal Prostate, Circumcised Back Exam: Normal Inspection, Full Range of Motion Extremities: Normal Inspection, Normal Range of Motion, Non-Tender, No Pedal Edema, Normal Capillary Refill Skin: Warm, Dry, Intact Wound/Incisions: Healing Well Neurological: No New Focal Deficit Psy/Mental Status: Alert, Normal Affect, Normal Mood - Patient Data Lab Results Last 24 hrs: Laboratory Results - last 24 hr 01/22/21 01/22/21 Range/Units 04:50 04:50 WBC 11.12 H (4.23-9.07) K/mm3 RBC 4.09 L (4.63-6.08) M/mm3 Hgb 12.5 L (13.7-17.5) gm/dl Hct 38.0 L (40.1-51.0) % MCV 92.9 H (79.0-92.2) fl MCH 30.6 (25.7-32.2) pg MCHC 32.9 (32.2-35.5) g/dl RDW Std Deviation 44.6 H (35.1-43.9) fL Plt Count 141 L (163-337) K/mm3 MPV 10.3 (9.4-12.3) fl Neut % (Auto) 78.8 H (34.0-67.9) % Lymph % (Auto) 10.9 L (21.8-53.1) % Rad[place] % (Auto) 9.2 (5.3-12.2) % Eos % (Auto) 0.7 L (0.8-7.0) Baso % (Auto) 0.1 (0.1-1.2) % Neut # (Auto) 8.77 H (1.78-5.38) K/mm3 Lymph # (Auto) 1.21 L (1.32-3.57) K/mm3 [place] # (Auto) 1.02 H (0.30-0.82) K/mm3 Eos # (Auto) 0.08 (0.04-0.54) K/mm3 Baso # (Auto) 0.01 (0.01-0.08) K/mm3 Sodium 138 (136-145) mEq/L Potassium 4.2 (3.5-5.1) mEq/L Chloride 105 (98-107) mEq/L Carbon Dioxide 24 (21-32) mEq/L Anion Gap 13.2 (5-15) BUN 15 (7-18) mg/dL Creatinine 1.0 (0.7-1.3) mg/dL Est Cr Clr Drug Dosing 64.81 mL/min Estimated GFR (MDRD) > 60 (>60) mL/min BUN/Creatinine Ratio 15.0 (14-18) Glucose 109 H (70-99) mg/dL Calcium 7.9 L (8.5-10.1) mg/dL Magnesium 2.2 (1.8-2.4) mg/dL Total Bilirubin 0.8 (0.2-1.0) mg/dL AST 12 L (15-37) U/L ALT 17 (16-63) U/L Alkaline Phosphatase 65 (46-116) U/L Total Protein 6.0 L (6.4-8.2) g/dl Albumin 2.7 L (3.4-5.0) g/dl Globulin 3.3 gm/dL Albumin/Globulin Ratio 0.8 L (1-2) Result Diagrams: 01/22/21 04:50 01/22/21 04:50 [place] Results Last 24 hrs: Microbiology 01/20/21 20:40 Urine Culture - Final Urine, Clean Catch NO GROWTH AFTER 2 DAYS 01/20/21 20:06 Aerobic Blood Culture - Preliminary Blood - Venous - Lab Draw NO GROWTH AFTER 1 DAY Anaerobic Blood Culture - Preliminary NO GROWTH AFTER 1 DAY 01/20/21 19:59 Aerobic Blood Culture - Preliminary Blood - Venous NO GROWTH AFTER 1 DAY Anaerobic Blood Culture - Preliminary NO GROWTH AFTER 1 DAY Sepsis Event Note - Evaluation Sepsis Screening Result: No Definite Risk - Focused Exam Vital Signs: Vital Signs Temp Pulse Resp BP Pulse Ox 01/22/21 07:30 36.6 C 53 L 20 129/79 97 01/22/21 04:06 36.7 C 53 L 16 124/76 95 - Problem List & Annotations (1) BPH loc w urin obs/LUTS SNOMED Code(s): 494061638 Code(s): N40.1 - BENIGN PROSTATIC HYPERPLASIA WITH LOWER URINARY TRACT SYMP Status: Acute Priority: High Current Visit: Yes Onset Date: ~01/21/21 Annotation/Comment:: ct scan and pre and post void pending - Problem List Review Problem List Initiated/Reviewed/Updated: Yes - My Orders Last 24 Hours: My Active Orders 01/22/21 09:45 Bladder Scan [RC] ASDIRECTED 01/22/21 09:47 Communication Order [RC] ASDIRECTED 01/22/21 10:00 Orthostatic Vital Signs [RC] ASDIRECTED 01/22/21 10:33 CRP [C-REACTIVE PROTEIN] [CHEM] Routine UA W/MICROSCOPIC [URIN] Routine - Plan Plan:: Patient is a 75-year-old male with a history of UTI who presented to the ER due to urinary frequency, urgency, and burning with urination x 2 days. Assessment: UTI/Pyelonephritis -UA compatible with UTI -CVA tenderness b/l -creatinine 1.2 on admission -CRP 12.8 on admission -With a diagnosis of UTI at the [facility], was treated with Cipro -WBC 17.02, neutrophils 82.7% on admission -Urine culture - no growth so far HTN -Not on home blood pressure medication -Hydralazine as needed Leukocytosis -Due to UTI/pyelonephritis Acute gastritis -Nausea and vomiting BPH -On home medication Flomax Plan: 1. Will be observed on medical floor 2. Ceftriaxone 1 g IV daily, pending urine culture Repeat renal function daily CT abdomen if not improved 3. Hydralazine as needed for his hypertension 4. Repeat CBC and CMP daily 5. Gentle IV fluid to keep him hydrated 6. Continue home Flomax 7. DVT prophylaxis: Lovenox 8. CODE STATUS: CPR only. RN and I met the patient in his room. I explained CPR and intubation to him at length. He agreed with CPR but declined intubatio n. Deposition: Home 1 to 2 more days 01/22/21 afebrile vss feels much better eating and no nausea currently . feels stronger and wants to walk . still has urinary freq. but burning mostly gone. back pain persists and rt cva tenderness persists. rest of exam normal . lab better crp and repeat ua ordered. on rocephin for suspected rt pylo and complex uti. bph or neurogenic bladder issues for last year with recurrent utis x 3 . plan: cont iv ant with hep lock iv tonight . oral ant to complete [address] scan to eval renal anatomy. flomax for susp. bph with partial obstruction features. pre and post void bladder scan . home tomorrow. boh
[2021-01-22] MEDS: Acetaminophen 325 MG Tab PO PRN (21:12)
[2021-01-22] MEDS: cefTRIAXone 1 GM in Sodium Chloride 0.9% 100 ML IV SCH (21:12)
[2021-01-23] MEDS: Tamsulosin 0.4 MG Cap.ER PO SCH (08:28)
[2021-01-23] MEDS: Enoxaparin 40 MG/0.4 ML Syringe SUBCUT SCH (08:28)
--- NOTE | 2021-01-23 13:16 | PCM.NBDC ---
Discharge Summary - Hospital Course Free Text/Narrative: 01/23/21 doing well voiding much better and freq and burning better. cont 10 days cipro for suspected chronic prostatitis and repeat bladder pre and post void tests. cont flomax and losartin . ct scan results pending.f/u in 2 weeks with Bhumi. repat ua at follow up boh HPI/: Lionel LIVE Admission History & Physical Patient Name: VINCENT MATT Date of : 1945 Patient Status: Inpatient Attending Provider: Le Pizarro Date: 01/20/21 20:53 Initialization Date: 01/20/21 20:53 H&P History of Present Illness - General Date of Service: 01/20/21 Admit Problem/Dx: Admission Diagnosis/Problem Admission Diagnosis/Problem Pyelonephritis Source of Information: Patient, Other (chart) - History of Present Illness Initial Comments - Free Text/Narative: Patient is a 75-year-old male with a history of UTI who presented to the ER due to urinary frequency, urgency, and burning with urination x 2 days. She went to [place] walk[facility]in [facility] yesterday. Over there he was diagnosed with UTI and prescribed Cipro. But he started to have nausea, vomiting and flank pain bilateral after he took Cipro. He also has chills. Otherwise he is fine. In the ER, urinalysis compatible with UTI. Ceftriaxone was initiated in the ER. - Related Data Allergies/Adverse Reactions: Allergies Allergy/AdvReac Type Severity Reaction Status Date / Time No Known Allergies Allergy Verified 01/20/21 17:34 Home Medications: Home Meds Ciprofloxacin [Ciprofloxacin HCl] 500 mg PO BID 01/21/21 [History] Tamsulosin [Flomax] 0.4 mg PO BID 01/21/21 [History] Past Medical History Gastrointestinal History: Reports: GERD Genitourinary History: Reports: UTI, Recurrent - Infectious Disease History Infectious Disease History: Reports: Chicken Pox - Past Surgical History Other Musculoskeletal Surgeries/Procedures:: back surgery 1984 Social & Family History - Family History Family Medical History: No Pertinent Family History (Denies genetic diseases in the family) - Tobacco Use Tobacco Use Status *Q: Former Tobacco User Used Tobacco, but Quit: Yes Month/Year Tobacco Last Used: 09/2000 - Caffeine Use Caffeine Use: Reports: Coffee - Recreational Drug Use Recreational Drug Use: No H&P Review of Systems - Review of Systems: Review Of Systems: See Below General: Reports: Chills HEENT: Reports: No Symptoms Pulmonary: Reports: No Symptoms Cardiovascular: Reports: No Symptoms Gastrointestinal: Reports: No Symptoms Genitourinary: Reports: Frequency, Burning, Pain, Urgency Musculoskeletal: Reports: No Symptoms Skin: Reports: No Symptoms Psychiatric: Reports: No Symptoms Neurological: Reports: No Symptoms Hematologic/Lymphatic: Reports: No Symptoms Immunologic: Reports: No Symptoms Exam - Exam Exam: See Below - Vital Signs Vital Signs: Last Vital Signs Temp 36.3 C 01/20/21 17: Pulse 64 01/20/21 17:29 Resp 12 01/20/21 17:29 BP 157/75 H 01/20/21 17:29 Pulse Ox 96 01/20/21 17:29 Weight: 80.286 kg - Exam General: Alert, Oriented, Cooperative HEENT: Conjunctiva Clear, EOMI, Pupils Equal, Pupils Reactive Neck: Supple, Full Range of Motion Lungs: Clear to Auscultation, Normal Respiratory Effort Cardiovascular: Regular Rate, Regular Rhythm, Normal S1, Normal S2 GI/Abdominal Exam: Normal Bowel Sounds, Soft, Non-Tender, No Organomegaly Back Exam: CVA Tenderness (L), CVA Tenderness (R) Extremities: Normal Inspection, Normal Range of Motion, Non-Tender, No Pedal Edema Skin: Warm, Dry, Intact Neurological: Strength Equal Bilateral, Normal Speech, Normal Tone, Sensation Intact Neuro Extensive - Mental Status: Alert, Oriented x3, Normal Mood/Affect Psychiatric: Normal Affect, Normal Mood - Patient Data Lab Results Last 24 hrs: Laboratory Results - last 24 hr 01/20/21 01/20/21 01/20/21 Range/Units 17:30 17:30 19:59 WBC 17.02 H (4.23-9.07) K/mm3 RBC 5.02 (4.63-6.08) M/mm3 Hgb 15.2 (13.7-17.5) gm/dl Hct 45.4 (40.1-51.0) % MCV 90.4 (79.0-92.2) fl MCH 30.3 (25.7-32.2) pg MCHC 33.5 (32.2-35.5) g/dl RDW Std Deviation 43.6 (35.1-43.9) fL Plt Count 165 (163-337) K/mm3 MPV 10.9 (9.4-12.3) fl Neut % (Auto) 87.3 H (34.0-67.9) % Lymph % (Auto) 5.8 L (21.8-53.1) % Love % (Auto) 6.6 (5.3-12.2) % Eos % (Auto) 0 L (0.8-7.0) Baso % (Auto) 0.1 (0.1-1.2) % Neut # (Auto) 14.86 H (1.78-5.38) K/mm3 Lymph # (Auto) 0.98 L (1.32-3.57) K/mm3 Love # (Auto) 1.13 H (0.30-0.82) K/mm3 Eos # (Auto) 0.00 L (0.04-0.54) K/mm3 Baso # (Auto) 0.01 (0.01-0.08) K/mm3 Manual Slide Review Abnormal smear Sodium 137 (136-145) mEq/L Potassium 4.2 (3.5-5.1) mEq/L Chloride 101 (98-107) mEq/L Carbon Dioxide 25 (21-32) mEq/L Anion Gap 15.2 H (5-15) BUN 16 (7-18) mg/dL Creatinine 1.2 (0.7-1.3) mg/dL Est Cr Clr Drug Dosing 54.01 mL/min Estimated GFR (MDRD) 59 (>60) mL/min BUN/Creatinine Ratio 13.3 L (14-18) Glucose 148 H (70-99) mg/dL Lactic Acid 1.6 (0.4-2.0) mmol/L Calcium 8.9 (8.5-10.1) mg/dL Total Bilirubin 1.9 H (0.2-1.0) mg/dL AST 15 (15-37) U/L ALT 19 (16-63) U/L Alkaline Phosphatase 85 (46-116) U/L C-Reactive Protein 12.8 H* (<1.0) mg/dL Total Protein 7.3 (6.4-8.2) g/dl Albumin 3.6 (3.4-5.0) g/dl Globulin 3.7 gm/dL Albumin/Globulin Ratio 1.0 (1-2) Result Diagrams: 01/21/21 05:13 01/21/21 05:13 Sepsis Event Note - Evaluation Sepsis Screening Result: No Definite Risk - Focused Exam Vital Signs: Vital Signs Temp Pulse Resp BP Pulse Ox 01/20/21 17:29 36.3 C 64 12 157/75 H 96 Problem List Initiated/Reviewed/Updated: Yes Orders Last 24hrs: Active Orders 24 hr Category Date Time Status Admission Status [Patient Status] [ADT] Routine ADT 01/20/21 20:43 Active Patient Status [ADT] Routine ADT 01/20/21 20:34 Active EKG Documentation Completion [RC] ROUTINE Care 01/20/21 20:42 Ordered Intake and Output [RC] QSHIFT Care 01/20/21 20:43 Ordered Oxygen Therapy [RC] PRN Care 01/20/21 20:42 Ordered RT Aerosol Therapy [RC] ASDIRECTED Care 01/20/21 20:46 Ordered Up to Chair [RC] ASDIRECTED Care 01/20/21 20:42 Ordered VTE/DVT Education [RC] PER UNIT ROUTINE Care 01/20/21 20:42 Ordered Vital Signs [RC] Q4H Care 01/20/21 20:42 Ordered OT Evaluation and Treatment [CONS] Routine Cons 01/20/21 20:42 Ordered PT Evaluation and Treatment [CONS] Routine Cons 01/20/21 20:42 Ordered Regular Diet [DIET] Diet 01/20/21 Dinner Ordered CBC WITH AUTO DIFF [HEME] DAILY Lab 01/21/21 05:00 Ordered CBC WITH AUTO DIFF [HEME] DAILY Lab 01/22/21 05:00 Ordered CBC WITH AUTO DIFF [HEME] DAILY Lab 01/23/21 05:00 Ordered CBC WITH AUTO DIFF [HEME] DAILY Lab 01/24/21 05:00 Ordered CBC WITH AUTO DIFF [HEME] DAILY Lab 01/25/21 05:00 Ordered COMPREHENSIVE METABOLIC PN,CMP [CHEM] DAILY Lab 01/21/21 05:00 Ordered COMPREHENSIVE METABOLIC PN,CMP [CHEM] DAILY Lab 01/22/21 05:00 Ordered COMPREHENSIVE METABOLIC PN,CMP [CHEM] DAILY Lab 01/23/21 05:00 Ordered COMPREHENSIVE METABOLIC PN,CMP [CHEM] DAILY Lab 01/24/21 05:00 Ordered COMPREHENSIVE METABOLIC PN,CMP [CHEM] DAILY Lab 01/25/21 05:00 Ordered CORONAVIRUS COVID-19 AIRAM [MOLEC] Stat Lab 01/20/21 20:29 Received CULTURE BLOOD [BC] Stat Lab 01/20/21 19:59 Received CULTURE BLOOD [BC] Stat Lab 01/20/21 20:06 Received CULTURE URINE [RM] Stat Lab 01/20/21 20:42 Ordered MAGNESIUM [CHEM] Routine Lab 01/20/21 20:42 Ordered TROPONIN I [CHEM] Routine Lab 01/20/21 20:42 Ordered UA RFX CONRADO AND CULT IF INDIC [URIN] Stat Lab 01/20/21 18:21 Ordered Acetaminophen [TylenoL] Med 01/20/21 20:42 Ordered 650 mg PO Q6H PRN Albuterol/Ipratropium [DuoNeb 3.0-0.5 MG/3 ML] Med 01/20/21 20:42 Ordered 3 ml NEB Q4H PRN Enoxaparin [Lovenox] Med 01/20/21 20:45 Ordered 40 mg SUBCUT DAILY Morphine Med 01/20/21 20:42 Ordered 2 mg IVPUSH Q4H PRN Promethazine [Phenergan] 12.5 mg Med 01/20/21 20:42 Ordered Sodium Chloride 0.9% [Normal Saline] 50 ml IV Q6H Sodium Chloride 0.9% [Normal Saline] 1,000 ml Med 01/20/21 20:45 Ordered IV ASDIRECTED cefTRIAXone [Rocephin] 1 gm Med 01/21/21 09:00 Ordered Sodium Chloride 0.9% [Normal Saline] 100 ml IV Q24H hydrALAZINE [Apresoline] Med 01/20/21 20:50 Ordered 10 mg IVPUSH Q4H PRN traMADol [Ultram] Med 01/20/21 20:48 Ordered 50 mg PO Q6H PRN Blood Culture x2 Reflex Set [OM.PC] Stat Oth 01/20/21 19:31 Ordered Medication Orders Acetaminophen (Acetaminophen 325 Mg Tab) 650 mg PO Q6H PRN PRN Reason: Pain (Mild 1-3)/fever Albuterol/Ipratropium (Albuterol/Ipratropium 3.0-0.5 Mg/3 Ml Neb Soln) 3 ml NEB Q4H PRN PRN Reason: Shortness Of Breath/wheezing Enoxaparin Sodium (Enoxaparin 40 Mg/0.4 Ml Syringe) 40 mg SUBCUT DAILY PATRICIO Hydralazine HCl (Hydralazine 20 Mg/Ml Sdv) 10 mg IVPUSH Q4H PRN PRN Reason: Hypertension Sodium Chloride (Normal Saline) 1,000 mls @ 70 mls/hr IV ASDIRECTED PATRICIO Promethazine HCl 12.5 mg/ (Sodium Chloride) 50.5 mls @ 100 mls/hr IV Q6H PRN PRN Reason: Nausea/Vomiting Ceftriaxone Sodium 1 gm/ (Sodium Chloride) 100 mls @ 200 mls/hr IV Q24H PATRICIO Morphine Sulfate (Morphine 2 Mg/Ml Syringe) 2 mg IVPUSH Q4H PRN PRN Reason: Pain (severe 7-10) Stop: 01/21/21 20:45 Tramadol HCl (Tramadol 50 Mg Tab) 50 mg PO Q6H PRN PRN Reason: Pain (moderate 4-6) Assessment/Plan Comment:: Patient is a 75-year-old male with a history of UTI who presented to the ER due to urinary frequency, urgency, and burning with urination x 2 days. Assessment: UTI/Pyelonephritis -UA compatible with UTI -CVA tenderness b/l -creatinine 1.2 LA 1.6 -CRP 12.8 -With a diagnosis of UTI at the [place] walk[facility], was treated with Cipro -WBC 17.02, neutrophils 82.7% HTN -Not on home blood pressure medication -Hydralazine as needed Leukocytosis -Due to UTI/pyelonephritis Acute gastritis -Nausea and vomiting BPH -On home medication Flomax Plan: 1. Will be observed on medical floor 2. Ceftriaxone 1 g IV daily Repeat renal function daily CT abdomen if not improved 3. Hydralazine as needed for his hypertension 4. Repeat CBC and CMP daily 5. Gentle IV fluid to keep him hydrated 6. Continue home Flomax 7. DVT prophylaxis: Lovenox 8. CODE STATUS: CPR only. RN and I met the patient in his room. I explained CPR and intubation to him at length. He agreed with CPR but declined intubation. - Mortality Measure Prognosis:: Good - Discharge Data Date of : 1945 Date of Discharge: 01/23/21 Discharge Disposition: Home, Self-Care 01 Condition: Good - Discharge Diagnosis/Problem(s) (1) BPH loc w urin obs/LUTS SNOMED Code(s): 686862609 ICD Code: N40.1 - BENIGN PROSTATIC HYPERPLASIA WITH LOWER URINARY TRACT SYMP Status: Acute Priority: Medium Current Visit: Yes Onset Date: ~01/21/21 Problem Details: ct scan and pre and post void pending (2) Hypertension SNOMED Code(s): 72879651 ICD Code: I10 - ESSENTIAL (PRIMARY) HYPERTENSION Status: Acute Priority: Low Current Visit: Yes Onset Date: ~01/22/21 Qualifiers: Hypertension type: essential hypertension Qualified Code(s): I10 - Essential (primary) hypertension (3) Rt flank pain SNOMED Code(s): 954517585 ICD Code: R10.9 - UNSPECIFIED ABDOMINAL PAIN Status: Acute Priority: Medium Current Visit: Yes Onset Date: ~01/21/21 Problem Details: better ? pylo vs non spec m/s pain cva tenderness better ct scan . - Discharge Plan Prescriptions: Ciprofloxacin [Ciprofloxacin HCl] 500 mg PO BID #20 Losartan [Cozaar] 25 mg PO DAILY #60 tab Tamsulosin [Flomax] 0.4 mg PO BID #60 Home Medications: Home Meds Ciprofloxacin [Ciprofloxacin HCl] 500 mg PO BID #20 01/23/21 [Rx] Losartan [Cozaar] 25 mg PO DAILY #60 tab 01/23/21 [Rx] Tamsulosin [Flomax] 0.4 mg PO BID #60 01/23/21 [Rx] Instructions: Pyelonephritis, Adult, [id number] Forms: ED Department Discharge Referrals: Laila Gonzalez PA-C [Primary Care Provider] - 02/02/21 11:15 am (this is the check in time your appointment is at 11:45) Khoa Tripathi MD [Physician] - [facility] Info & Exam - Vital Signs Vital Signs: Last Vital Signs Temp 36.4 C 01/23/21 11:46 Pulse 47 L 01/23/21 11:46 Resp 16 01/23/21 11:46 BP 155/78 H 01/23/21 11:46 Pulse Ox 100 01/23/21 11:46 Orthostatic Blood Pressure [ 119/62 Standing] Orthostatic Blood Pressure [ 139/76 Sitting] Orthostatic Blood Pressure [ 146/75 Supine] Current Weight: 78.517 kg Height: 1.75 m
--- NOTE | 2021-01-23 13:23 | PCM.DCSUM1 ---
Discharge Summary - Hospital Course Free Text/Narrative:: 01/23/21 doing well voiding easier and less often / bladder res. 80 cc and capacity [address] scan pending. rt flank pain better. .no pelvic pain or dysuria and feels stronger. return to work next week. f/u in 2 weeks. 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 repeat bldder scan in 2 weeks with repeat u.a boh HPI Initial Comments: Lionel LIVE Admission History & Physical Patient Name: VINCENT MATT Date of : 1945 Patient Status: Inpatient Attending Provider: Le Pizarro Date: 01/20/21 20:53 Initialization Date: 01/20/21 20:53 H&P History of Present Illness - General Date of Service: 01/20/21 Admit Problem/Dx: Admission Diagnosis/Problem Admission Diagnosis/Problem Pyelonephritis Source of Information: Patient, Other (chart) - History of Present Illness Initial Comments - Free Text/Narative: Patient is a 75-year-old male with a history of UTI who presented to the ER due to urinary frequency, urgency, and burning with urination x 2 days. She went to [place] [facility] yesterday. Over there he was diagnosed with UTI and prescribed Cipro. But he started to have nausea, vomiting and flank pain bilateral after he took Cipro. He also has chills. Otherwise he is fine. In the ER, urinalysis compatible with UTI. Ceftriaxone was initiated in the ER. - Related Data Allergies/Adverse Reactions: Allergies Allergy/AdvReac Type Severity Reaction Status Date / Time No Known Allergies Allergy Verified 01/20/21 17:34 Home Medications: Home Meds Ciprofloxacin [Ciprofloxacin HCl] 500 mg PO BID 01/21/21 [History] Tamsulosin [Flomax] 0.4 mg PO BID 01/21/21 [History] Past Medical History Gastrointestinal History: Reports: GERD Genitourinary History: Reports: UTI, Recurrent - Infectious Disease History Infectious Disease History: Reports: Chicken Pox - Past Surgical History Other Musculoskeletal Surgeries/Procedures:: back surgery 1984 Social & Family History - Family History Family Medical History: No Pertinent Family History (Denies genetic diseases in the family) - Tobacco Use Tobacco Use Status *Q: Former Tobacco User Used Tobacco, but Quit: Yes Month/Year Tobacco Last Used: 09/2000 - Caffeine Use Caffeine Use: Reports: Coffee - Recreational Drug Use Recreational Drug Use: No H&P Review of Systems - Review of Systems: Review Of Systems: See Below General: Reports: Chills HEENT: Reports: No Symptoms Pulmonary: Reports: No Symptoms Cardiovascular: Reports: No Symptoms Gastrointestinal: Reports: No Symptoms Genitourinary: Reports: Frequency, Burning, Pain, Urgency Musculoskeletal: Reports: No Symptoms Skin: Reports: No Symptoms Psychiatric: Reports: No Symptoms Neurological: Reports: No Symptoms Hematologic/Lymphatic: Reports: No Symptoms Immunologic: Reports: No Symptoms Exam - Exam Exam: See Below - Vital Signs Vital Signs: Last Vital Signs Temp 36.3 C 01/20/21 17:29 Pulse 64 01/20/21 17:29 Resp 12 01/20/21 17:29 BP 157/75 H 01/20/21 17:29 Pulse Ox 96 01/20/21 17:29 Weight: 80.286 kg - Exam General: Alert, Oriented, Cooperative HEENT: Conjunctiva Clear, EOMI, Pupils Equal, Pupils Reactive Neck: Supple, Full Range of Motion Lungs: Clear to Auscultation, Normal Respiratory Effort Cardiovascular: Regular Rate, Regular Rhythm, Normal S1, Normal S2 GI/Abdominal Exam: Normal Bowel Sounds, Soft, Non-Tender, No Organomegaly Back Exam: CVA Tenderness (L), CVA Tenderness (R) Extremities: Normal Inspection, Normal Range of Motion, Non-Tender, No Pedal Edema Skin: Warm, Dry, Intact Neurological: Strength Equal Bilateral, Normal Speech, Normal Tone, Sensation Intact Neuro Extensive - Mental Status: Alert, Oriented x3, Normal Mood/Affect Psychiatric: Normal Affect, Normal Mood - Patient Data Lab Results Last 24 hrs: Laboratory Results - last 24 hr 01/20/21 01/20/21 01/20/21 Range/Units 17:30 17:30 19:59 WBC 17.02 H (4.23-9.07) K/mm3 RBC 5.02 (4.63-6.08) M/mm3 Hgb 15.2 (13.7-17.5) gm/dl Hct 45.4 (40.1-51.0) % MCV 90.4 (79.0-92.2) fl MCH 30.3 (25.7-32.2) pg MCHC 33.5 (32.2-35.5) g/dl RDW Std Deviation 43.6 (35.1-43.9) fL Plt Count 165 (163-337) K/mm3 MPV 10.9 (9.4-12.3) fl Neut % (Auto) 87.3 H (34.0-67.9) % Lymph % (Auto) 5.8 L (21.8-53.1) % Kimball % (Auto) 6.6 (5.3-12.2) % Eos % (Auto) 0 L (0.8-7.0) Baso % (Auto) 0.1 (0.1-1.2) % Neut # (Auto) 14.86 H (1.78-5.38) K/mm3 Lymph # (Auto) 0.98 L (1.32-3.57) K/mm3 [place] # (Auto) 1.13 H (0.30-0.82) K/mm3 Eos # (Auto) 0.00 L (0.04-0.54) K/mm3 Baso # (Auto) 0.01 (0.01-0.08) K/mm3 Manual Slide Review Abnormal smear Sodium 137 (136-145) mEq/L Potassium 4.2 (3.5-5.1) mEq/L Chloride 101 (98-107) mEq/L Carbon Dioxide 25 (21-32) mEq/L Anion Gap 15.2 H (5-15) BUN 16 (7-18) mg/dL Creatinine 1.2 (0.7-1.3) mg/dL Est Cr Clr Drug Dosing 54.01 mL/min Estimated GFR (MDRD) 59 (>60) mL/min BUN/Creatinine Ratio 13.3 L (14-18) Glucose 148 H (70-99) mg/dL Lactic Acid 1.6 (0.4-2.0) mmol/L Calcium 8.9 (8.5-10.1) mg/dL Total Bilirubin 1.9 H (0.2-1.0) mg/dL AST 15 (15-37) U/L ALT 19 (16-63) U/L Alkaline Phosphatase 85 (46-116) U/L C-Reactive Protein 12.8 H* (<1.0) mg/dL Total Protein 7.3 (6.4-8.2) g/dl Albumin 3.6 (3.4-5.0) g/dl Globulin 3.7 gm/dL Albumin/Globulin Ratio 1.0 (1-2) Result Diagrams: 01/21/21 05:13 01/21/21 05:13 Sepsis Event Note - Evaluation Sepsis Screening Result: No Definite Risk - Focused Exam Vital Signs: Vital Signs Temp Pulse Resp BP Pulse Ox 01/20/21 17:29 36.3 C 64 12 157/75 H 96 Problem List Initiated/Reviewed/Updated: Yes Orders Last 24hrs: Active Orders 24 hr Category Date Time Status Admission Status [Patient Status] [ADT] Routine ADT 01/20/21 20:43 Active Patient Status [ADT] Routine ADT 01/20/21 20:34 Active EKG Documentation Completion [RC] ROUTINE Care 01/20/21 20:42 Ordered Intake and Output [RC] QSHIFT Care 01/20/21 20:43 Ordered Oxygen Therapy [RC] PRN Care 01/20/21 20:42 Ordered RT Aerosol Therapy [RC] ASDIRECTED Care 01/20/21 20:46 Ordered Up to Chair [RC] ASDIRECTED Care 01/20/21 20:42 Ordered VTE/DVT Education [RC] PER UNIT ROUTINE Care 01/20/21 20:42 Ordered Vital Signs [RC] Q4H Care 01/20/21 20:42 Ordered OT Evaluation and Treatment [CONS] Routine Cons 01/20/21 20:42 Ordered PT Evaluation and Treatment [CONS] Routine Cons 01/20/21 20:42 Ordered Regular Diet [DIET] Diet 01/20/21 Dinner Ordered CBC WITH AUTO DIFF [HEME] DAILY Lab 01/21/21 05:00 Ordered CBC WITH AUTO DIFF [HEME] DAILY Lab 01/22/21 05:00 Ordered CBC WITH AUTO DIFF [HEME] DAILY Lab 01/23/21 05:00 Ordered CBC WITH AUTO DIFF [HEME] DAILY Lab 01/24/21 05:00 Ordered CBC WITH AUTO DIFF [HEME] DAILY Lab 01/25/21 05:00 Ordered COMPREHENSIVE METABOLIC PN,CMP [CHEM] DAILY Lab 01/21/21 05:00 Ordered COMPREHENSIVE METABOLIC PN,CMP [CHEM] DAILY Lab 01/22/21 05:00 Ordered COMPREHENSIVE METABOLIC PN,CMP [CHEM] DAILY Lab 01/23/21 05:00 Ordered COMPREHENSIVE METABOLIC PN,CMP [CHEM] DAILY Lab 01/24/21 05:00 Ordered COMPREHENSIVE METABOLIC PN,CMP [CHEM] DAILY Lab 01/25/21 05:00 Ordered CORONAVIRUS COVID-19 AIRAM [MOLEC] Stat Lab 01/20/21 20:29 Received CULTURE BLOOD [BC] Stat Lab 01/20/21 19:59 Received CULTURE BLOOD [BC] Stat Lab 01/20/21 20:06 Received CULTURE URINE [RM] Stat Lab 01/20/21 20:42 Ordered MAGNESIUM [CHEM] Routine Lab 01/20/21 20:42 Ordered TROPONIN I [CHEM] Routine Lab 01/20/21 20:42 Ordered UA RFX CONRADO AND CULT IF INDIC [URIN] Stat Lab 01/20/21 18:21 Ordered Acetaminophen [TylenoL] Med 01/20/21 20:42 Ordered 650 mg PO Q6H PRN Albuterol/Ipratropium [DuoNeb 3.0-0.5 MG/3 ML] Med 01/20/21 20:42 Ordered 3 ml NEB Q4H PRN Enoxaparin [Lovenox] Med 01/20/21 20:45 Ordered 40 mg SUBCUT DAILY Morphine Med 01/20/21 20:42 Ordered 2 mg IVPUSH Q4H PRN Promethazine [Phenergan] 12.5 mg Med 01/20/21 20:42 Ordered Sodium Chloride 0.9% [Normal Saline] 50 ml IV Q6H Sodium Chloride 0.9% [Normal Saline] 1,000 ml Med 01/20/21 20:45 Ordered IV ASDIRECTED cefTRIAXone [Rocephin] 1 gm Med 01/21/21 09:00 Ordered Sodium Chloride 0.9% [Normal Saline] 100 ml IV Q24H hydrALAZINE [Apresoline] Med 01/20/21 20:50 Ordered 10 mg IVPUSH Q4H PRN traMADol [Ultram] Med 01/20/21 20:48 Ordered 50 mg PO Q6H PRN Blood Culture x2 Reflex Set [OM.PC] Stat Oth 01/20/21 19:31 Ordered Medication Orders Acetaminophen (Acetaminophen 325 Mg Tab) 650 mg PO Q6H PRN PRN Reason: Pain (Mild 1-3)/fever Albuterol/Ipratropium (Albuterol/Ipratropium 3.0-0.5 Mg/3 Ml Neb Soln) 3 ml NEB Q4H PRN PRN Reason: Shortness Of Breath/wheezing Enoxaparin Sodium (Enoxaparin 40 Mg/0.4 Ml Syringe) 40 mg SUBCUT DAILY [facility] Hydralazine HCl (Hydralazine 20 Mg/Ml Sdv) 10 mg IVPUSH Q4H PRN PRN Reason: Hypertension Sodium Chloride (Normal Saline) 1,000 mls @ 70 mls/hr IV ASDIRECTED [facility] Promethazine HCl 12.5 mg/ (Sodium Chloride) 50.5 mls @ 100 mls/hr IV Q6H PRN PRN Reason: Nausea/Vomiting Ceftriaxone Sodium 1 gm/ (Sodium Chloride) 100 mls @ 200 mls/hr IV Q24H PATRICIO Morphine Sulfate (Morphine 2 Mg/Ml Syringe) 2 mg IVPUSH Q4H PRN PRN Reason: Pain (severe 7-10) Stop: 01/21/21 20:45 Tramadol HCl (Tramadol 50 Mg Tab) 50 mg PO Q6H PRN PRN Reason: Pain (moderate 4-6) Assessment/Plan Comment:: Patient is a 75-year-old male with a history of UTI who presented to the ER due to urinary frequency, urgency, and burning with urination x 2 days. Assessment: UTI/Pyelonephritis -UA compatible with UTI -CVA tenderness b/l -creatinine 1.2 LA 1.6 -CRP 12.8 -With a diagnosis of UTI at the [place] [facility], was treated with Cipro -WBC 17.02, neutrophils 82.7% HTN -Not on home blood pressure medication -Hydralazine as needed Leukocytosis -Due to UTI/pyelonephritis Acute gastritis -Nausea and vomiting BPH -On home medication Flomax Plan: 1. Will be observed on medical floor 2. Ceftriaxone 1 g IV daily Repeat renal function daily CT abdomen if not improved 3. Hydralazine as needed for his hypertension 4. Repeat CBC and CMP daily 5. Gentle IV fluid to keep him hydrated 6. Continue home Flomax 7. DVT prophylaxis: Lovenox 8. CODE STATUS: CPR only. RN and I met the patient in his room. I explained CPR and intubation to him at length. He agreed with CPR but declined intubation. - Mortality Measure Prognosis:: Good Brief History: blood cultuures and urine cultures no growth - Discharge Data Discharge Date: 01/23/21 Discharge Disposition: Home, Self-Care 01 Condition: Good - Referral to Home Health Primary Care Physician: BOWEN Styles - Discharge Diagnosis/Problem(s) (1) BPH loc w urin obs/LUTS SNOMED Code(s): 837313236 ICD Code: N40.1 - BENIGN PROSTATIC HYPERPLASIA WITH LOWER URINARY TRACT SYMP Status: Acute Priority: Medium Current Visit: Yes Onset Date: ~01/21/21 Problem Details: ct scan and pre and post void pending (2) Hypertension SNOMED Code(s): 67486106 ICD Code: I10 - ESSENTIAL (PRIMARY) HYPERTENSION Status: Acute Priority: Low Current Visit: Yes Onset Date: ~01/22/21 Qualifiers: Hypertension type: essential hypertension Qualified Code(s): I10 - Essential (primary) hypertension (3) Rt flank pain SNOMED Code(s): 350470522 ICD Code: R10.9 - UNSPECIFIED ABDOMINAL PAIN Status: Acute Priority: Medium Current Visit: Yes Onset Date: ~01/21/21 Problem Details: better ? pylo vs non spec m/s pain cva tenderness better ct scan . - Patient Summary/Data Consults: Consultations 01/20/21 20:42 OT Evaluation and Treatment [CONS] Routine PT Evaluation and Treatment [CONS] Routine - Patient Instructions Driving: Do Not Drive Showering/Bathing: May Shower Notify Provider of: Fever, Increased Pain, Nausea and/or Vomiting - Discharge Plan *PRESCRIPTION DRUG MONITORING PROGRAM REVIEWED*: No *COPY OF PRESCRIPTION DRUG MONITORING REPORT IN PATIENT ERIN: No Prescriptions/Med Rec: Ciprofloxacin [Ciprofloxacin HCl] 500 mg PO BID #20 Losartan [Cozaar] 25 mg PO DAILY #60 tab Tamsulosin [Flomax] 0.4 mg PO BID #60 Tobacco Cessation Medication: Prescription Given Home Medications: Home Meds Ciprofloxacin [Ciprofloxacin HCl] 500 mg PO BID #20 01/23/21 [Rx] Losartan [Cozaar] 25 mg PO DAILY #60 tab 01/23/21 [Rx] Tamsulosin [Flomax] 0.4 mg PO BID #60 01/23/21 [Rx] Oxygen Therapy Mode: Room Air Patient Handouts: Pyelonephritis, Adult, [id number] Forms: ED Department Discharge Referrals: Laila Gonzalez PA-C [Primary Care Provider] - 02/02/21 11:15 am (this is the check in time your appointment is at 11:45) Khoa Tripathi MD [Physician] - - Discharge Summary/Plan Comment DC Time >30 min.: Yes - General Info Date of Service: 01/23/21 Admission Dx/Problem (Free Text: Admission Diagnosis/Problem Admission Diagnosis/Problem Pyelonephritis Subjective Update: Patient is a 75-year-old male with a history of UTI who presented to the ER due to urinary frequency, urgency, and burning with urination x 2 days. He is feeling better. No longer has a nausea, vomiting, fever or chills. Afebrile Heart rate is around 59-63 Blood pressure is acceptable He is on room air WBC 16.41, platelets 148 Creatinine 1.0 Magnesium 1.7 01/22/21 afebrile vss feels much better eating and no nausea currently . feels stronger and wants to walk . still has urinary freq. but burning mostly gone. back pain persists and rt cva tenderness persists. rest of exam normal . lab better crp and repeat ua ordered. on rocephin for suspected rt pylo and complex uti. bph or neurogenic bladder issues for last year with recurrent utis x 3 . plan: cont iv ant with hep lock iv tonight . oral ant to complete [address] scan to eval renal anatomy. flomax for susp. bph with partial obstruction features. pre and post void bladder scan . home tomorrow. boh 01/23/21 doing well voiding easier and less often / bladder res. 80 cc and capacity [address] scan pending. rt flank pain better. .no pelvic pain or dysuria and feels stronger. return to work next week. f/u in 2 weeks. 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 repeat bldder scan in 2 weeks with repeat u.a boh Functional Status: Reports: Pain Controlled - Review of Systems General: Reports: No Symptoms HEENT: Reports: No Symptoms Pulmonary: Reports: No Symptoms Cardiovascular: Reports: No Symptoms Gastrointestinal: Reports: No Symptoms Genitourinary: Reports: No Symptoms Musculoskeletal: Reports: No Symptoms Skin: Reports: No Symptoms Neurological: Reports: No Symptoms Psychiatric: Reports: No Symptoms - Patient Data Vitals - Most Recent: Last Vital Signs Temp 36.4 C 05/16/21 11:46 Pulse 47 L 01/23/21 11:46 Resp 16 01/23/21 11:46 BP 155/78 H 01/23/21 11:46 Pulse Ox 100 01/23/21 11:46 Orthostatic Blood Pressure [ 119/62 Standing] Orthostatic Blood Pressure [ 139/76 Sitting] Orthostatic Blood Pressure [ 146/75 Supine] Weight - Most Recent: 78.517 kg I&O - Last 24 hours: Intake & Output 01/22/21 01/23/21 01/23/21 22:59 06:59 14:59 Intake Total 2380 600 120 Output Total 920 1400 Balance 1460 -800 120 Lab Results - Last 24 hrs: Laboratory Results - last 24 hr 01/22/21 01/23/21 01/23/21 Range/Units 14:28 05:05 05:05 WBC 6.16 (4.23-9.07) K/mm3 RBC 4.16 L (4.63-6.08) M/mm3 Hgb 12.5 L (13.7-17.5) gm/dl Hct 38.5 L (40.1-51.0) % MCV 92.5 H (79.0-92.2) fl MCH 30.0 (25.7-32.2) pg MCHC 32.5 (32.2-35.5) g/dl RDW Std Deviation 43.7 (35.1-43.9) fL Plt Count 164 (163-337) K/mm3 MPV 10.4 (9.4-12.3) fl Neut % (Auto) 67.6 (34.0-67.9) % Lymph % (Auto) 19.0 L (21.8-53.1) % Kimball % (Auto) 10.1 (5.3-12.2) % Eos % (Auto) 2.9 (0.8-7.0) Baso % (Auto) 0.2 (0.1-1.2) % Neut # (Auto) 4.17 (1.78-5.38) K/mm3 Lymph # (Auto) 1.17 L (1.32-3.57) K/mm3 Kimball # (Auto) 0.62 (0.30-0.82) K/mm3 Eos # (Auto) 0.18 (0.04-0.54) K/mm3 Baso # (Auto) 0.01 (0.01-0.08) K/mm3 Sodium 141 (136-145) mEq/L Potassium 4.0 (3.5-5.1) mEq/L Chloride 107 (98-107) mEq/L Carbon Dioxide 25 (21-32) mEq/L Anion Gap 13.0 (5-15) BUN 12 (7-18) mg/dL Creatinine 0.9 (0.7-1.3) mg/dL Est Cr Clr Drug Dosing 72.01 mL/min Estimated GFR (MDRD) > 60 (>60) mL/min BUN/Creatinine Ratio 13.3 L (14-18) Glucose 98 (70-99) mg/dL Calcium 8.0 L (8.5-10.1) mg/dL Total Bilirubin 0.5 (0.2-1.0) mg/dL AST 12 L (15-37) U/L ALT 19 (16-63) U/L Alkaline Phosphatase 61 (46-116) U/L Total Protein 6.1 L (6.4-8.2) g/dl Albumin 2.7 L (3.4-5.0) g/dl Globulin 3.4 gm/dL Albumin/Globulin Ratio 0.8 L (1-2) Urine Color Yellow (Yellow) Urine Appearance Clear (Clear) Urine pH 7.0 (5.0-8.0) Ur Specific [place] 1.015 (1.005-1.030) Urine Protein Negative (Negative) Urine Glucose (UA) Negative (Negative) Urine Ketones Trace H (Negative) Urine Occult Blood Trace-intact H (Negative) Urine Nitrite Negative (Negative) Urine Bilirubin Negative (Negative) Urine Urobilinogen 0.2 (0.2-1.0) Ur Leukocyte Esterase 1+ H (Negative) Urine RBC 5-10 H (0-5) /hpf Urine WBC 5-10 H (0-5) /hpf Ur Squamous Epith Cells 0-5 (0-5) /hpf Amorphous Sediment Rare H (NOT SEEN) /hpf Urine Bacteria Few (FEW) /hpf Urine Mucus Not seen (FEW) /hpf CONRADO Results - Last 24 hrs: Microbiology 01/20/21 20:06 Aerobic Blood Culture - Preliminary Blood - Venous - Lab Draw NO GROWTH AFTER 2 DAYS Anaerobic Blood Culture - Preliminary NO GROWTH AFTER 2 DAYS 01/20/21 19:59 Aerobic Blood Culture - Preliminary Blood - Venous NO GROWTH AFTER 2 DAYS Anaerobic Blood Culture - Preliminary NO GROWTH AFTER 2 DAYS 01/20/21 20:40 Urine Culture - Final Urine, Clean Catch NO GROWTH AFTER 2 DAYS Med Orders - Current: Current Medications Acetaminophen (Acetaminophen 325 Mg Tab) 650 mg PO Q6H PRN PRN Reason: Pain (Mild 1-3)/fever Last Admin: 01/22/21 21:12 Dose: 650 mg Documented by: Albuterol/Ipratropium (Albuterol/Ipratropium 3.0-0.5 Mg/3 Ml Neb Soln) 3 ml NEB Q4H PRN PRN Reason: Shortness Of Breath/wheezing Enoxaparin Sodium (Enoxaparin 40 Mg/0.4 Ml Syringe) 40 mg SUBCUT DAILY [facility] Last Admin: 01/23/21 08:28 Dose: 40 mg Documented by: Hydralazine HCl (Hydralazine 20 Mg/Ml Sdv) 10 mg IVPUSH Q4H PRN PRN Reason: Hypertension Promethazine HCl 12.5 mg/ (Sodium Chloride) 50.5 mls @ 100 mls/hr IV Q6H PRN PRN Reason: Nausea/Vomiting Ceftriaxone Sodium 1 gm/ (Sodium Chloride) 100 mls @ 200 mls/hr IV Q24H [facility] Last Admin: 01/22/21 21:12 Dose: 200 mls/hr Documented by: Tamsulosin HCl (Tamsulosin 0.4 Mg Cap.Er) 0.4 mg PO BID [facility] Last Admin: 01/23/21 08:28 Dose: 0.4 mg Documented by: Tramadol HCl (Tramadol 50 Mg Tab) 50 mg PO Q6H PRN PRN Reason: Pain (moderate 4-6) Discontinued Medications Ceftriaxone Sodium 1 gm/ (Sodium Chloride) 100 mls @ 200 mls/hr IV ONETIME ONE Stop: 01/20/21 20:47 Last Admin: 01/20/21 20:45 Dose: 200 mls/hr Documented by: Sodium Chloride (Normal Saline) 1,000 mls @ 70 mls/hr IV ASDIRECTED [facility] Last Admin: 01/22/21 04:13 Dose: 70 mls/hr Documented by: Ceftriaxone Sodium 1 gm/ (Sodium Chloride) 100 mls @ 200 mls/hr IV Q24H PATRICIO Magnesium Sulfate (Magnesium Sulfate In Water 2 Gm/50 Ml) 2 gm in 50 mls @ 25 mls/hr IV ONETIME ONE Stop: 01/21/21 10:44 Last Admin: 01/21/21 08:46 Dose: 25 mls/hr Documented by: Metoclopramide HCl (Metoclopramide 10 Mg/2 Ml Sdv) 5 mg IVPUSH ONETIME ONE Stop: 01/20/21 19:00 Last Admin: 01/20/21 19:05 Dose: 5 mg Documented by: Morphine Sulfate (Morphine 2 Mg/Ml Syringe) 2 mg IVPUSH Q4H PRN PRN Reason: Pain (severe 7-10) Stop: 01/21/21 20:45 - Exam General: Reports: Alert, Oriented HEENT: Reports: Pupils Equal, Pupils Reactive, EOMI, Mucous Membr. Moist/[place] Neck: Reports: Supple Lungs: Reports: Clear to Auscultation, Normal Respiratory Effort Cardiovascular: Reports: Regular Rate, Regular Rhythm GI/Abdominal Exam: Normal Bowel Sounds, Soft, Non-Tender, No Organomegaly, No Distention, No Abnormal Bruit, No Mass, Pelvis Stable (Male) Exam: No Hernia, Normal Inspection, Normal Prostate, Circumcised Rectal (Males) Exam: Normal Exam, Normal Rectal Tone, Prostate Normal Back Exam: Reports: Normal Inspection, Full Range of Motion Extremities: Normal Inspection, Normal Range of Motion, Non-Tender, No Pedal Edema, Normal Capillary Refill Skin: Reports: Warm, Dry, Intact Wound/Incisions: Reports: Healing Well Neurological: Reports: No New Focal Deficit Psy/Mental Status: Reports: Alert, Normal Affect, Normal Mood
--- NOTE | 2021-01-24 07:58 | CT ---
CT abdomen and pelvis Technique: Multiple axial sections were obtained from below the top of the liver inferiorly through the pubic symphysis. Intravenous contrast and oral contrast has been given. Delayed images were also obtained through the majority of the abdomen and pelvis. Reconstructed coronal and sagittal images were obtained. Findings: Slight atelectasis is noted within the right lung base. Small area of atelectasis or scarring is seen within the medial left lung base. The visualized liver shows no focal abnormality. Gallbladder contains no calcified gallstones. Spleen size is normal. Adrenal glands show no nodule. Pancreas shows no discrete abnormality. Kidneys show symmetric contrast enhancement with no hydronephrosis or mass. Aorta shows atherosclerotic change which continues into the iliac vessels. No aneurysm is seen. No retroperitoneal adenopathy or mesenteric abnormalities are seen. Pelvis shows slight thickening of the bladder wall. No pelvic mass or other abnormality is appreciated. Delayed images show contrast within the distal esophagus compatible with reflux. There is contrast excretion from both kidneys into nondilated ureters and into the bladder. Prostate gland is enlarged. Bone window settings were reviewed which show scattered degenerative changes mostly at L3-4 and L4-5. No acute osseous finding is appreciated. Impression: 1. Slight bladder wall thickening. This may relate to chronic bladder outlet obstruction versus cystitis. Please correlate with the patient's symptoms. 2. Other findings as noted above believed to be incidental. Diagnostic code #3 I agree with preliminary report from [facility], finalized on 01/22/21, 1:17 PM CDT, code 1
== END 2021-01-23 14:00 | disposition home or self-care (01) | DRG 690 ==
LOC: JD.ED 17:21 → JD.MS 21:04 → OBSVTOIN 01-21 08:25
PROVIDERS: ADMIT Internal Medicine; ATTEND Internal Medicine
DX: N12 Tubulo-interstitial nephritis, not specified as acute or chronic (principal); N13.8 Other obstructive and reflux uropathy; Z87.440 Personal history of urinary (tract) infections; K29.00 Acute gastritis without bleeding; R11.2 Nausea with vomiting, unspecified; I10 Essential (primary) hypertension; Z20.822 Contact with and (suspected) exposure to COVID-19; N40.0 Benign prostatic hyperplasia without lower urinary tract symptoms; N40.1 Benign prostatic hyperplasia with lower urinary tract symptoms; N41.1 Chronic prostatitis; K21.9 Gastro-esophageal reflux disease without esophagitis; Z87.891 Personal history of nicotine dependence; Z79.899 Other long term (current) drug therapy
CPT/HCPCS: 36415 ×2; 80053 ×2; 81001; 83605; 83735; 84484; 85025 ×2; 86140; 87040 ×2; 87086; 93005; J0696; J2765; J7030; U0002; 51701; 74177; 74177-26; 96365; 96375; 97161-GP; 97165-GO; 99219; 99232; 99284; 99285-25; A9270-GY; G0378; J1650; J3475

== ENCOUNTER 2021-06-17 09:35 | Emergency (ER) | payer MEDICARE, OTHER ==
--- NOTE | 2021-06-17 10:34 | EDM.PDOC ---
ED HPI GENERAL MEDICAL PROBLEM - General Chief Complaint: Genitourinary Problem Stated Complaint: UNABLE TO URINATE Time Seen by Provider: 06/17/21 10:00 Source of Information: Reports: Patient History Limitations: Reports: No Limitations - History of Present Illness INITIAL COMMENTS - FREE TEXT/NARRATIVE: Patient is 76-year-old male with a past medical history of BPH presenting with a chief complaint of urinary retention. Patient states he has suffered from this before. He does report taking Flomax several times a day. States he has been urinating well up until this morning. He reports inability to void and significant bladder pressure/discomfort. Denies having any preceding dysuria or hematuria. Denies flank pain or fevers. Saw urologist about 6 months ago who did not give any additional recommendations. Scrotum Pain Score (Numeric/FACES): 8 - Related Data Allergies Allergy/AdvReac Type Severity Reaction Status Date / Time No Known Allergies Allergy Verified 06/17/21 09:54 Home Meds: Home Meds Ciprofloxacin [Ciprofloxacin HCl] 500 mg PO BID #20 01/23/21 [Rx] Losartan [Cozaar] 25 mg PO DAILY #60 tab 01/23/21 [Rx] Tamsulosin [Flomax] 0.4 mg PO BID #60 01/23/21 [Rx] Past Medical History HEENT History: Reports: Impaired Vision Gastrointestinal History: Reports: GERD Genitourinary History: Reports: BPH, UTI, Recurrent - Infectious Disease History Infectious Disease History: Reports: Chicken Pox - Past Surgical History Other Musculoskeletal Surgeries/Procedures:: back surgery 1985 Social & Family History - Family History Family Medical History: No Pertinent Family History - Tobacco Use Tobacco Use Status *Q: Never Tobacco User - Caffeine Use Caffeine Use: Reports: Coffee ED ROS GENERAL - Review of Systems Review Of Systems: Comprehensive ROS is negative, except as noted in HPI. ED EXAM, RENAL/ - Physical Exam Exam: See Below Text/Narrative:: I have reviewed the triage vital signs Const: Well nourished, well developed, appears stated age Eyes: Pupils Equal and reactive to light bilaterally, no conjunctival injection HENT: No signs of trauma or swelling, Neck supple without meningismus CV: Regular Rate Rhythm, Warm, well-perfused extremities RESP: Unlabored respiratory effort GI: soft, non-tender, non-distended, no masses MSK: No gross deformities appreciated Skin: Warm, dry. No rashes Neuro: Alert, cellar pumper II-XII grossly intact. Sensation and motor function of extremities grossly intact. Psych: Appropriate mood and affect. Course - Vital Signs Last Recorded V/S: Last Vital Signs Temp 36.6 C 06/17/21 09:53 Pulse 71 06/17/21 09:53 Resp 18 06/17/21 09:53 BP 164/89 H 06/17/21 09:53 Pulse Ox 97 06/17/21 09:53 - Orders/Labs/Meds Orders: Active Orders 24 hr Category Date Time Status Insert Bañuelos Catheter [Insert Urinary Catheter] [OM.PC] Care 06/17/21 10:15 Ordered Q24H Urinary Catheter Assessment [RC] ASDIRECTED Care 06/17/21 10:08 Active Labs: Laboratory Tests 06/17/21 Range/Units 10:45 Urine Color Yellow (Yellow) Urine Appearance Clear (Clear) Urine pH 6.5 (5.0-8.0) Ur Specific [place] > or = 1.030 (1.005-1.030) Urine Protein Negative (Negative) Urine Glucose (UA) Negative (Negative) Urine Ketones 2+ H (Negative) Urine Occult Blood Trace-lysed H (Negative) Urine Nitrite Negative (Negative) Urine Bilirubin Negative (Negative) Urine Urobilinogen 0.2 (0.2-1.0) Ur Leukocyte Esterase Negative (Negative) Urine RBC 5-10 H (0-5) /hpf Urine WBC 0-5 (0-5) /hpf Ur Epithelial Cells 0-5 (0-5) /hpf Urine Bacteria Few (FEW) /hpf Urine Mucus Few (FEW) /hpf Departure - Departure Time of Disposition: 12:06 Disposition: Home, Self-Care 01 Clinical Impression: Urinary retention due to benign prostatic hyperplasia - Discharge Information *PRESCRIPTION DRUG MONITORING PROGRAM REVIEWED*: Not Applicable *COPY OF PRESCRIPTION DRUG MONITORING REPORT IN PATIENT ERIN: Not Applicable Instructions: Acute Urinary Retention, Male Referrals: Laila Gonzalez PA-C [Primary Care Provider] - Forms: ED Department Discharge Additional Instructions: Please follow-up with urology in the next 1 week for further evaluation and management. Please keep the catheter in place until you see urology. Continue taking Flomax. Sepsis Event Note (ED) - Evaluation Sepsis Screening Result: No Definite Risk - Focused Exam Vital Signs: Vital Signs Temp Pulse Resp BP Pulse Ox 06/17/21 09:53 36.6 C 71 18 164/89 H 97 - My Orders Last 24 Hours: My Active Orders 06/17/21 10:08 Urinary Catheter Assessment [RC] ASDIRECTED 06/17/21 10:15 Insert Bañuelos Catheter [Insert Urinary Catheter] [OM.PC] Q24H - Assessment/Plan Last 24 Hours: My Active Orders 06/17/21 10:08 Urinary Catheter Assessment [RC] ASDIRECTED 06/17/21 10:15 Insert Bañuelos Catheter [Insert Urinary Catheter] [OM.PC] Q24H Assessment:: Patient is 76-year-old male presenting to the emergency room with a chief complaint of urinary retention. Patient had over 400 cc of urine in the bladder which was unable to void spontaneously. Patient had a Bañuelos catheter placed which was without difficulty. Urinalysis demonstrates evidence of some mild blood but no evidence of infectious process. Patient will be discharged with Bañuelos catheter. Instructed to follow-up with urology next several days. Return precautions discussed. Patient is already on Flomax and will be discharged in stable condition. Patient pleased with plan.
== END 2021-06-17 15:15 | disposition home or self-care (01) ==
LOC: JD.ED 09:35
DX: N40.1 Benign prostatic hyperplasia with lower urinary tract symptoms (principal); R33.8 Other retention of urine
CPT/HCPCS: 51702; 81001; 99283-25

== ENCOUNTER 2022-12-05 04:49 | Emergency (ER) | payer MEDICARE, OTHER ==
[2022-12-05] MEDS ORDERED: Ondansetron 4 MG/2 ML SDV IVPUSH ONE (05:39)
[2022-12-05] MEDS ORDERED: Sodium Chloride 0.9% 1,000 ML IV STA (05:39)
[2022-12-05] MEDS ORDERED: Sodium Chloride 0.9% 10 ML Syringe FLUSH PRN (05:39)
[2022-12-05] MEDS ORDERED: HYDROmorphone 0.5 MG/0.5 ML Syringe IVPUSH ONE (05:41)
[2022-12-05 06:24] LABS: CORONAVIRUS COVID-19 NAA POSITIVE (NEGATIVE)
== END 2022-12-05 07:35 | disposition home or self-care (01) ==
LOC: JD.ED 04:49
DX: U07.1 COVID-19 (principal)
CPT/HCPCS: 0241U; 36415; 80053; 81001; 83690; 85025; 96361; 96374; 96375; 99284; J1170; J2405; J3490; J7030

== ENCOUNTER 2023-12-14 01:50 | Inpatient (IN) | payer MEDICARE, OTHER ==
[2023-12-14] MEDS: Acetaminophen 325 MG Tab PO ONE (02:38)
[2023-12-14] MEDS: fentaNYL 100 MCG/2 ML SDV IVPUSH ONE (02:39)
[2023-12-14] MEDS: Ondansetron 4 MG/2 ML SDV IVPUSH ONE (02:39)
[2023-12-14] MEDS: Iopamidol 755 Mg/ML 100 ML Bottle IVPUSH ONE ×2 (02:56)
[2023-12-14] MEDS: Sodium Chloride 0.9% 10 ML Syringe FLUSH PRN (02:57)
[2023-12-14] MEDS: Sodium Chloride 0.9% 100 ML IV SCH (02:57)
[2023-12-14 02:58] LABS: BASOPHILS PERCENT AUTO 0.3 % (0.0-1.0); EOSINOPHILS ABSOLUTE AUTO 0.1 K/mm3 (0.0-0.4); EOSINOPHILS PERCENT AUTO 1.4 % (0.0-6.0); HEMATOCRIT 44.4 % (42.0-52.0); HEMOGLOBIN 15.2 gm/dl (14.0-18.0); IMMATURE GRAN ABSOLUTE AUTO 0.03 K/mm3 (0.00-0.05); IMMATURE GRAN PERCENT AUTO 0.3 % (0.0-0.4); LYMPHOCYTES ABSOLUTE AUTO 2.5 K/mm3 (1.0-4.8); LYMPHOCYTES PERCENT AUTO 24.6 % (24.0-44.0); MEAN CORPUSCULAR HEMOGLOBIN 31.1 pg (28.0-32.0); MEAN CORPUSCULAR HGB CONC 34.2 g/dl (32.0-36.0); MEAN PLATELET VOLUME 10.1 fl (9.4-12.4); MONOCYTES ABSOLUTE AUTO 0.7 K/mm3 (0.0-0.8); MONOCYTES PERCENT AUTO 6.9 % (0.0-8.0); NEUTROPHILS ABSOLUTE AUTO 6.8 K/mm3 (1.8-7.7); NEUTROPHILS PERCENT AUTO 66.5 % (41.0-71.0); PLATELET COUNT,PLT 145 K/mm3 (150-400); RED BLOOD CELL COUNT 4.88 M/mm3 (4.52-5.90); WHITE BLOOD CELL COUNT,WBC 10.18 K/mm3 (3.9-11.3)
[2023-12-14] MEDS: Sodium Chloride 0.9% 500 ML ONE (02:59)
[2023-12-14] MEDS: Sodium Chloride 0.9% 500 ML IV ONE (03:02)
[2023-12-14 03:17] LABS: A/G RATIO 1.3 (1-2); ANION GAP 14.9 (5-15); BILIRUBIN TOTAL 1.2 mg/dL (0.2-1.0); BUN/CREATININE RATIO 14.2 (14-18); CALCIUM 9.9 mg/dL (8.5-10.1); CREATININE 1.2 mg/dL (0.7-1.3); EST CRCL DRUG DOSING (CG) 51.55 mL/min; POTASSIUM,K 3.9 mEq/L (3.5-5.1); PROTEIN TOTAL,TP 7.1 g/dl (6.4-8.2)
[2023-12-14] MEDS: Morphine 4 MG/ML Syringe IVPUSH ONE (03:35)
[2023-12-14 03:50] LABS: INR 1.02; PROTHROMBIN TIME 10.9 SECONDS (9.7-12.0)
[2023-12-14 03:51] LABS: PTT,PARTIAL THROMBOPLSTIN TIME 25.6 SECONDS (21.7-31.4)
[2023-12-14] MEDS: Benzocaine 20% Topical Spray UD MUCMEM ONE (05:10)
[2023-12-14] MEDS ORDERED: Midazolam 1 MG/ML 2 ML SDV ONE (05:21)
[2023-12-14] MEDS ORDERED: fentaNYL 250 MCG/5 ML SDV ONE (05:21)
[2023-12-14] MEDS ORDERED: Etomidate 2 MG/ML 20 ML SDV IVPUSH ONE (05:21)
[2023-12-14] MEDS ORDERED: Succinylcholine 200 MG/10 ML MDV ONE (05:21)
[2023-12-14] MEDS ORDERED: Lidocaine 1% 6 ML ONE (05:21)
[2023-12-14] MEDS ORDERED: Rocuronium 50 MG/5 ML Vial ONE (05:26)
[2023-12-14] MEDS ORDERED: ceFAZolin 2 GM Vial ONE (06:00)
[2023-12-14] MEDS ORDERED: ePHEDrine 50 MG/ML SDV ONE (06:09)
[2023-12-14] MEDS: EPINEPHrine 1 MG/ML SDV ONE (06:19)
[2023-12-14] MEDS ORDERED: Lactated Ringers 1,000 ML ONE ×2 (06:19→06:52)
[2023-12-14] MEDS: Bupivacaine 0.25% 10 ML SDV ONE (06:19)
[2023-12-14] MEDS: Lidocaine 1% 20 ML MDV ONE (06:19)
[2023-12-14] MEDS ORDERED: Ondansetron 4 MG/2 ML SDV ONE (06:49)
[2023-12-14] MEDS ORDERED: fentaNYL 100 MCG/2 ML SDV IVPUSH PRN (06:55)
[2023-12-14] MEDS ORDERED: HYDROmorphone 0.5 MG/0.5 ML Syringe IVPUSH PRN ×2 (06:55→07:10)
[2023-12-14] MEDS ORDERED: Promethazine 25 MG/ML SDV IV PRN (07:01)
[2023-12-14] MEDS ORDERED: Promethazine 25 MG in Sodium Chloride 0.9% 50 ML IV PRN (07:09)
[2023-12-14] MEDS ORDERED: Naloxone 0.4 MG/ML SDV IVPUSH PRN (07:10)
[2023-12-14] MEDS: Enoxaparin 40 MG/0.4 ML Syringe SUBCUT SCH (09:12)
[2023-12-14] MEDS: Lactated Ringers 1,000 ML IV SCH (12:16)
[2023-12-14] MEDS: Ondansetron 4 MG/2 ML SDV IVPUSH PRN (14:15)
[2023-12-14] MEDS: Ketorolac 15 MG/ML SDV IVPUSH PRN (23:17)
[2023-12-15] MEDS: Tamsulosin 0.4 MG Cap.ER PO SCH (01:14)
[2023-12-15 06:27] LABS: HEMATOCRIT 37.1 % (42.0-52.0); HEMOGLOBIN 12.5 gm/dl (14.0-18.0); MEAN CORPUSCULAR HGB CONC 33.7 g/dl (32.0-36.0); MEAN CORPUSCULAR VOLUME 92.1 fl (83.0-99.0); MEAN PLATELET VOLUME 10.3 fl (9.4-12.4); PLATELET COUNT,PLT 130 K/mm3 (150-400); RED BLOOD CELL COUNT 4.03 M/mm3 (4.52-5.90); WHITE BLOOD CELL COUNT,WBC 7.81 K/mm3 (3.9-11.3)
[2023-12-15] MEDS ORDERED: Acetaminophen 325 MG Tab PO PRN (06:30)
[2023-12-15] MEDS ORDERED: Labetalol 100 MG/20 ML MDV IVPUSH PRN (06:42)
[2023-12-15 06:47] LABS: ANION GAP 11.1 (5-15); BUN/CREATININE RATIO 14.6 (14-18); CALCIUM 8.8 mg/dL (8.5-10.1); CREATININE 1.3 mg/dL (0.7-1.3); EST CRCL DRUG DOSING (CG) 47.59 mL/min; POTASSIUM,K 4.1 mEq/L (3.5-5.1)
[2023-12-16 05:56] LABS: ANION GAP 10.2 (5-15); CALCIUM 8.8 mg/dL (8.5-10.1); EST CRCL DRUG DOSING (CG) 61.86 mL/min; POTASSIUM,K 4.2 mEq/L (3.5-5.1)
[2023-12-16 06:02] LABS: HEMATOCRIT 35.7 % (42.0-52.0); HEMOGLOBIN 11.9 gm/dl (14.0-18.0); MEAN CORPUSCULAR HEMOGLOBIN 30.1 pg (28.0-32.0); MEAN CORPUSCULAR HGB CONC 33.3 g/dl (32.0-36.0); MEAN CORPUSCULAR VOLUME 90.4 fl (83.0-99.0); MEAN PLATELET VOLUME 10.3 fl (9.4-12.4); PLATELET COUNT,PLT 130 K/mm3 (150-400); RED BLOOD CELL COUNT 3.95 M/mm3 (4.52-5.90); WHITE BLOOD CELL COUNT,WBC 5.81 K/mm3 (3.9-11.3)
[2023-12-17] MEDS: Polyethylene Glycol 3350 Powder 17 GM Packet PO SCH (09:23)
[2023-12-17] MEDS: Bisacodyl 10 MG Supp RECTAL PRN (16:25)
[2023-12-18 08:35] LABS: BASOPHILS PERCENT AUTO 0.4 % (0.0-1.0); EOSINOPHILS ABSOLUTE AUTO 0.2 K/mm3 (0.0-0.4); EOSINOPHILS PERCENT AUTO 3.3 % (0.0-6.0); HEMATOCRIT 37.9 % (42.0-52.0); HEMOGLOBIN 12.9 gm/dl (14.0-18.0); IMMATURE GRAN ABSOLUTE AUTO 0.03 K/mm3 (0.00-0.05); IMMATURE GRAN PERCENT AUTO 0.4 % (0.0-0.4); LYMPHOCYTES ABSOLUTE AUTO 1.6 K/mm3 (1.0-4.8); LYMPHOCYTES PERCENT AUTO 22.4 % (24.0-44.0); MEAN CORPUSCULAR HEMOGLOBIN 31.3 pg (28.0-32.0); MONOCYTES ABSOLUTE AUTO 0.6 K/mm3 (0.0-0.8); MONOCYTES PERCENT AUTO 8.1 % (0.0-8.0); NEUTROPHILS ABSOLUTE AUTO 4.6 K/mm3 (1.8-7.7); NEUTROPHILS PERCENT AUTO 65.4 % (41.0-71.0); PLATELET COUNT,PLT 139 K/mm3 (150-400); RED BLOOD CELL COUNT 4.12 M/mm3 (4.52-5.90); WHITE BLOOD CELL COUNT,WBC 7.02 K/mm3 (3.9-11.3)
[2023-12-18 08:52] LABS: ANION GAP 14.8 (5-15); CALCIUM 8.9 mg/dL (8.5-10.1); EST CRCL DRUG DOSING (CG) 61.86 mL/min; POTASSIUM,K 3.8 mEq/L (3.5-5.1)
[2023-12-18] MEDS: Diatrizoate Meglumine/Diatrizoate Sodium 37% 120 ML Bottle PO ONE (10:01)
[2023-12-18] MEDS: Tamsulosin 0.4 MG Cap.ER PO SCH (13:17)
[2023-12-18] MEDS: Polyethylene Glycol 3350 Powder 17 GM Packet PO SCH (13:17)
== END 2023-12-18 17:54 | disposition home or self-care (01) | DRG 337 ==
LOC: JD.ED 01:50 → JD.SDS 04:27 → JD.MS 06:58
PROVIDERS: ADMIT Student in an Organized Health Care Education/Training Program; ATTEND Student in an Organized Health Care Education/Training Program
PROC: 0D9670Z Drainage of Stomach with Drainage Device, Via Natural or Artificial Opening (ICD-10-PCS; 2023-12-14)
PROC: 0DN84ZZ Release Small Intestine, Percutaneous Endoscopic Approach (ICD-10-PCS; principal; 2023-12-14 05:30)
DX: K56.609 Unspecified intestinal obstruction, unspecified as to partial versus complete obstruction (principal); K46.0 Unspecified abdominal hernia with obstruction, without gangrene; N40.0 Benign prostatic hyperplasia without lower urinary tract symptoms; K21.9 Gastro-esophageal reflux disease without esophagitis; E78.5 Hyperlipidemia, unspecified; Z87.891 Personal history of nicotine dependence; Z79.899 Other long term (current) drug therapy
CPT/HCPCS: 36415; 43752; 51702; 71045; 71260; 74177; 80053; 83690; 84484; 85025; 85610; 85730; 86850; 86900; 86901; 93005; 96361; 96374; 96375; 99285; A9270; J0171; J0330; J0690; J1596; J2250; J2270; J2405 ×2; J3010 ×2; J3490 ×4; J7030 ×2; J7120 ×2; Q9967 ×2; 74250; 74250-26; 80048; 82947; 85027; 93010; J1650; J1885; Q9963

== ENCOUNTER 2023-12-22 07:20 | Emergency (ER) | payer MEDICARE, OTHER ==
[2023-12-22 07:46] LABS: APPEARANCE,URINE CLEAR (Clear); BILIRUBIN,URINE NEGATIVE (Negative); COLOR,URINE YELLOW (Yellow); GLUCOSE,URINE NEGATIVE (Negative); KETONES,URINE NEGATIVE (Negative); LEUKOCYTE ESTERASE,URINE 1+ (Negative); NITRITE,URINE NEGATIVE (Negative); OCCULT BLOOD,URINE TRACE-INTACT (Negative); PROTEIN,URINE TRACE (Negative); UROBILINOGEN,URINE 0.2 (0.2-1.0)
[2023-12-22 07:59] LABS: BASOPHILS PERCENT AUTO 0.3 % (0.0-1.0); EOSINOPHILS ABSOLUTE AUTO 0.1 K/mm3 (0.0-0.4); EOSINOPHILS PERCENT AUTO 0.5 % (0.0-6.0); HEMATOCRIT 38.8 % (42.0-52.0); IMMATURE GRAN ABSOLUTE AUTO 0.05 K/mm3 (0.00-0.05); IMMATURE GRAN PERCENT AUTO 0.4 % (0.0-0.4); LYMPHOCYTES ABSOLUTE AUTO 1.8 K/mm3 (1.0-4.8); LYMPHOCYTES PERCENT AUTO 13.5 % (24.0-44.0); MEAN CORPUSCULAR HEMOGLOBIN 30.8 pg (28.0-32.0); MEAN CORPUSCULAR HGB CONC 33.5 g/dl (32.0-36.0); MEAN CORPUSCULAR VOLUME 91.9 fl (83.0-99.0); MEAN PLATELET VOLUME 9.5 fl (9.4-12.4); MONOCYTES ABSOLUTE AUTO 1.3 K/mm3 (0.0-0.8); NEUTROPHILS ABSOLUTE AUTO 9.9 K/mm3 (1.8-7.7); NEUTROPHILS PERCENT AUTO 75.3 % (41.0-71.0); PLATELET COUNT,PLT 166 K/mm3 (150-400); RED BLOOD CELL COUNT 4.22 M/mm3 (4.52-5.90); WHITE BLOOD CELL COUNT,WBC 13.14 K/mm3 (3.9-11.3)
[2023-12-22 08:11] LABS: BACTERIA,URINE MODERATE /hpf (FEW); EPITHELIAL CELLS,URINE NOT SEEN /hpf (0-5); MUCUS,URINE FEW /hpf (FEW); RBC,URINE 0-5 /hpf (0-5); WBC CLUMPS,URINE RARE /hpf (NOT SEEN)
[2023-12-22 08:29] LABS: A/G RATIO 0.9 (1-2); ALBUMIN 3.3 g/dl (3.4-5.0); ANION GAP 13.9 (5-15); BILIRUBIN TOTAL 1.9 mg/dL (0.2-1.0); CALCIUM 8.9 mg/dL (8.5-10.1); EST CRCL DRUG DOSING (CG) 61.86 mL/min; MAGNESIUM 1.9 mg/dL (1.8-2.4); POTASSIUM,K 3.9 mEq/L (3.5-5.1); PROTEIN TOTAL,TP 6.8 g/dl (6.4-8.2); TSH 0.384 uIU/mL (0.358-3.74)
[2023-12-22] MEDS: Amoxicillin/Clavulanate K 875-125 MG Tab PO ONE (10:10)
== END 2023-12-22 10:15 | disposition home or self-care (01) ==
LOC: JD.ED 07:20
DX: N39.0 Urinary tract infection, site not specified (principal); Z79.899 Other long term (current) drug therapy
CPT/HCPCS: 36415; 71045; 80053; 81001; 81003; 83605; 83735; 84443; 85025; 87086; 87088; 87186; 93005; 99284; A9270